=== PATIENT | female | born 1965 | race Caucasian/White ===

== ENCOUNTER 2017-08-18 12:46 | Emergency (ER) | payer OTHER ==
[2017-08-18 12:51] VITALS: RESP 20; TEMP 98.3
[2017-08-18] MEDS ORDERED: SODIUM CHLORIDE 0.9% 1,000 ML IV STA ×2 (13:09)
[2017-08-18] MEDS ORDERED: ONDANSETRON 4 MG/2 ML VIAL IVP STA (13:11)
[2017-08-18] MEDS ORDERED: ACETAMINOPHEN IV (For NPO) 1,000 MG in EMPTY BAG 1 BAG IVPB ONE (13:11)
[2017-08-18] MEDS ORDERED: KETOROLAC 30 MG/ML 1 ML VIAL IVP STA (13:11)
--- NOTE | 2017-08-18 13:14 | ED ---
General Adult HPI - General Chief complaint: Fever Stated complaint: fever/vomiting Time Seen by Provider: 08/18/17 12:52 Source: patient, RN notes reviewed Mode of arrival: ambulatory Limitations: no limitations - History of Present Illness Initial comments: 51-year-old female presents for 3 days of flulike symptoms. Patient has had runny nose, sore throat, multiple episodes of nausea and vomiting. She does complain of some crampy abdominal pain. She has developed cough over this time which is dry. No chest pain, no difficult to breathing. Patient states she's had diffuse myalgias in her arms and thighs and her body. Denies any dysuria. Denies diarrhea. Patient did not receive her influenza vaccine this year. She works in a doctor's office. Patient is otherwise healthy, no chronic medical problems. - Related Data Home Medications Medication Instructions Recorded Confirmed Multivitamins, Thera [Multivitamin 1 tab PO DAILY 08/18/17 08/18/17 (formulary)] Allergies Allergy/AdvReac Type Severity Reaction Status Date / Time prochlorperazine edisylate Allergy Anaphylaxis Verified 08/18/17 13:11 [From Compazine] prochlorperazine maleate Allergy Anaphylaxis Verified 08/18/17 13:11 [From Compazine] Review of Systems ROS Statement: Those systems with pertinent positive or pertinent negative responses have been documented in the HPI. ROS Other: All systems not noted in ROS Statement are negative. Past Medical History Past Medical History: Cancer Additional Past Medical History / Comment(s): breast ca bilateral History of Any Multi-Drug Resistant Organisms: None Reported Past Surgical History: Breast Surgery Additional Past Surgical History / Comment(s): MASTECTOMY lee modified radical Past Anesthesia/Blood Transfusion Reactions: No Reported Reaction Past Psychological History: Anxiety Smoking Status: Current every day smoker Past Alcohol Use History: None Reported Past Drug Use History: None Reported General Exam Limitations: no limitations General appearance: alert, in no apparent distress Head exam: Present: atraumatic, normocephalic Eye exam: Present: normal appearance, PERRL ENT exam: Present: mucous membranes dry Neck exam: Present: normal inspection. Absent: tenderness, meningismus Respiratory exam: Present: normal lung sounds bilaterally. Absent: respiratory distress, wheezes Cardiovascular Exam: Present: regular rate, normal rhythm GI/Abdominal exam: Present: soft, tenderness (mild generalized tenderness). Absent: distended Extremities exam: Present: normal inspection, full ROM, normal capillary refill. Absent: pedal edema Neurological exam: Present: alert, oriented X3, CN II-XII intact. Absent: motor sensory deficit Psychiatric exam: Present: normal affect, normal mood Skin exam: Present: warm, dry, intact. Absent: cyanosis, diaphoretic Course Vital Signs 08/18/17 12:49 Temperature 98.3 F Pulse Rate 90 Respiratory 20 Rate Blood Pressure 115/64 O2 Sat by Pulse 98 Oximetry Medical Decision Making - Medical Decision Making 51-year-old female presenting with flulike symptoms. Influenza A is positive for type A. Urinalysis clear, CBC and CMP unremarkable. Chest x-ray and abdominal x-ray is negative, lactic acid normal. Patient received 2 L of IV hydration, Tylenol and Toradol, on reevaluation she is feeling slightly better. She will continue to treat her symptoms at home. Follow-up with her primary care physician. - Lab Data Result diagrams: 08/18/17 14:00 08/18/17 14:00 Lab Results 08/18/17 08/18/17 08/18/17 Range/Units 13:45 14:00 14:00 WBC 6.8 (3.8-10.6) k/uL RBC 4.53 (3.80-5.40) m/uL Hgb 14.3 (11.4-16.0) gm/dL Hct 43.4 (34.0-46.0) % MCV 95.8 (80.0-100.0) fL MCH 31.7 (25.0-35.0) pg MCHC 33.0 (31.0-37.0) g/dL RDW 13.5 (11.5-15.5) % Plt Count 238 (150-450) k/uL Neutrophils % 75 % Lymphocytes % 18 % Monocytes % 4 % Eosinophils % 1 % Basophils % 1 % Neutrophils # 5.1 (1.3-7.7) k/uL Lymphocytes # 1.2 (1.0-4.8) k/uL Monocytes # 0.3 (0-1.0) k/uL Eosinophils # 0.1 (0-0.7) k/uL Basophils # 0.1 (0-0.2) k/uL Sodium 141 (137-145) mmol/L Potassium 4.1 (3.5-5.1) mmol/L Chloride 105 (98-107) mmol/L Carbon Dioxide 25 (22-30) mmol/L Anion Gap 11 mmol/L BUN 12 (7-17) mg/dL Creatinine 0.75 (0.52-1.04) mg/dL Est GFR (MDRD) Af Amer >60 (>60 ml/min/1.73 sqM) Est GFR (MDRD) Non-Af >60 (>60 ml/min/1.73 sqM) Glucose 87 (74-99) mg/dL Plasma Lactic Acid Mervin (0.7-2.0) mmol/L Calcium 8.9 (8.4-10.2) mg/dL Total Bilirubin 0.2 (0.2-1.3) mg/dL AST 25 (14-36) U/L ALT 29 (9-52) U/L Alkaline Phosphatase 86 (38-126) U/L Total Protein 6.5 (6.3-8.2) g/dL Albumin 4.0 (3.5-5.0) g/dL Urine Color Urine Appearance (Clear) Urine pH (5.0-8.0) Ur Specific [place] (1.001-1.035) Urine Protein (Negative) Urine Glucose (UA) (Negative) Urine Ketones (Negative) Urine Blood (Negative) Urine Nitrite (Negative) Urine Bilirubin (Negative) Urine Urobilinogen (<2.0) mg/dL Ur Leukocyte Esterase (Negative) Urine HCG, Qual (Not Detectd) Influenza Type A RNA Detected H (Not Detectd) Influenza Type B (PCR) Not Detected (Not Detectd) 08/18/17 08/18/17 08/18/17 Range/Units 14:00 14:00 14:00 WBC (3.8-10.6) k/uL RBC (3.80-5.40) m/uL Hgb (11.4-16.0) gm/dL Hct (34.0-46.0) % MCV (80.0-100.0) fL MCH (25.0-35.0) pg MCHC (31.0-37.0) g/dL RDW (11.5-15.5) % Plt Count (150-450) k/uL Neutrophils % % Lymphocytes % % Monocytes % % Eosinophils % % Basophils % % Neutrophils # (1.3-7.7) k/uL Lymphocytes # (1.0-4.8) k/uL Monocytes # (0-1.0) k/uL Eosinophils # (0-0.7) k/uL Basophils # (0-0.2) k/uL Sodium (137-145) mmol/L Potassium (3.5-5.1) mmol/L Chloride (98-107) mmol/L Carbon Dioxide (22-30) mmol/L Anion Gap mmol/L BUN (7-17) mg/dL Creatinine (0.52-1.04) mg/dL Est GFR (MDRD) Af Amer (>60 ml/min/1.73 sqM) Est GFR (MDRD) Non-Af (>60 ml/min/1.73 sqM) Glucose (74-99) mg/dL Plasma Lactic Acid Mervin 0.9 (0.7-2.0) mmol/L Calcium (8.4-10.2) mg/dL Total Bilirubin (0.2-1.3) mg/dL AST (14-36) U/L ALT (9-52) U/L Alkaline Phosphatase (38-126) U/L Total Protein (6.3-8.2) g/dL Albumin (3.5-5.0) g/dL Urine Color Yellow Urine Appearance Clear (Clear) Urine pH 5.5 (5.0-8.0) Ur Specific [place] 1.022 (1.001-1.035) Urine Protein Trace H (Negative) Urine Glucose (UA) Negative (Negative) Urine Ketones 3+ H (Negative) Urine Blood Negative (Negative) Urine Nitrite Negative (Negative) Urine Bilirubin Negative (Negative) Urine Urobilinogen <2.0 (<2.0) mg/dL Ur Leukocyte Esterase Negative (Negative) Urine HCG, Qual Not Detected (Not Detectd) Influenza Type A RNA (Not Detectd) Influenza Type B (PCR) (Not Detectd) Disposition Clinical Impression: Influenza Disposition: HOME SELF-CARE Condition: Good Instructions: Fever in Adults (ED), Influenza (ED) Referrals: None,Stated [Primary Care Provider] - 1-2 days Wilner Gregg MD [STAFF PHYSICIAN] - 1-2 days Time of Disposition: 15:05
[2017-08-18 14:17] LABS: Appearance,Urine Clear (Clear); Basophils # (A) 0.1 k/uL (0-0.2); Basophils % (A) 1 %; Bilirubin,Urine Negative (Negative); Blood,Urine Negative (Negative); Color,Urine Yellow; Eosinophils # (A) 0.1 k/uL (0-0.7); Eosinophils % (A) 1 %; Glucose,Urine (UA) Negative (Negative); HCT 43.4 % (34.0-46.0); HGB 14.3 gm/dL (11.4-16.0); Ketones,Urine 3+ (Negative); Leukocyte Esterase,Urine Negative (Negative); Lymphocytes # (A) 1.2 k/uL (1.0-4.8); Lymphocytes % (A) 18 %; MCH 31.7 pg (25.0-35.0); MCV 95.8 fL (80.0-100.0); Mean Platelet Volume 7.6; Monocytes # (A) 0.3 k/uL (0-1.0); Monocytes % (A) 4 %; Neutrophils # (A) 5.1 k/uL (1.3-7.7); Neutrophils % (A) 75 %; Nitrite,Urine Negative (Negative); PH, Urine 5.5 (5.0-8.0); Platelet Count 238 k/uL (150-450); Protein,Urine Trace (Negative); RBC 4.53 m/uL (3.80-5.40); RDW 13.5 % (11.5-15.5); Specific Gravity,Urine 1.022 (1.001-1.035); Urobilinogen,Urine <2.0 mg/dL (<2.0); WBC 6.8 k/uL (3.8-10.6)
[2017-08-18 14:28] LABS: ALT 29 U/L (9-52); AST 25 U/L (14-36); Alkaline Phosphatase 86 U/L (38-126); Anion Gap 11 mmol/L; Blood Urea Nitrogen 12 mg/dL (7-17); Calcium 8.9 mg/dL (8.4-10.2); Carbon Dioxide 25 mmol/L (22-30); Chloride 105 mmol/L (98-107); Glucose 87 mg/dL (74-99); Potassium 4.1 mmol/L (3.5-5.1); Sodium 141 mmol/L (137-145); Total Bilirubin 0.2 mg/dL (0.2-1.3); Total Protein 6.5 g/dL (6.3-8.2)
--- NOTE | 2017-08-18 14:51 | XR ---
EXAMINATION TYPE: XR abdomen acute w cxr DATE OF EXAM: 08/18/2017 COMPARISON: NONE HISTORY: Pain TECHNIQUE: Single view of the chest and 2 views of the abdomen are submitted. FINDINGS: Single view of the chest fails demonstrate evidence for acute pulmonary disease. There is no evidence for pneumoperitoneum. The bowel gas pattern is unremarkable as there is air throughout nondilated small and large bowel. No sizeable air fluid levels.No mass effects are seen. No unusual calcifications. IMPRESSION: 1. Unremarkable study.
[2017-08-18 15:45] VITALS: BP 106/56; PULSE 81
== END 2017-08-18 16:01 | disposition home or self-care (01) ==
LOC: EC 12:46
DX: J10.1 Influenza due to other identified influenza virus with other respiratory manifestations (principal); R11.2 Nausea with vomiting, unspecified; R10.9 Unspecified abdominal pain; F17.200 Nicotine dependence, unspecified, uncomplicated; Z79.899 Other long term (current) drug therapy; Z88.8 Allergy status to other drugs, medicaments and biological substances; Z85.3 Personal history of malignant neoplasm of breast; Z90.13 Acquired absence of bilateral breasts and nipples
CPT/HCPCS: 36415; 80053; 83605; 85025; 81003; 81025; 87502; 74022; 99283; 96374; 96375 ×2; 96361; J2405; J1885; J0131

== ENCOUNTER 2018-12-26 10:13 | Emergency (ER) | payer OTHER ==
[2018-12-26 10:38] VITALS: BP 122/58; PULSE 62; RESP 18; TEMP 97.8
[2018-12-26] MEDS ORDERED: KETOROLAC 60 MG/2 ML VIAL IM STA (11:11)
[2018-12-26] MEDS ORDERED: DIAZEPAM 5 MG/ML 2 ML INJ IM STA (11:11)
--- NOTE | 2018-12-26 11:21 | ED ---
General Adult HPI - General Chief complaint: Extremity Injury, Upper Stated complaint: back/shoulder pain Time Seen by Provider: 12/26/18 11:05 Source: patient, RN notes reviewed Mode of arrival: ambulatory Limitations: no limitations - History of Present Illness Initial comments: 53-year-old male presents emergency Department chief complaint of upper neck, shoulder and arm pain. Patient states that she woke up with pain on Wednesday states that she felt like she slept wrong. Patient states the pain is worsening and she states that she was seen a chiropractor who was unable to help her. Patient was sent here for pain control. Patient denies any headache or dizziness no focal deficits. Patient has no chest pain or shortness of breath. Patient states that she has no discoloration of her arm denies any nausea vomiting. Patient states the pain is better at rest worse with movement. Patient states that massage with area helps. - Related Data Home Medications Medication Instructions Recorded Confirmed Ibuprofen [Motrin Ib] 200 mg PO Q6H PRN 12/26/18 12/26/18 Naproxen Sod/Diphenhydramine 1 tab PO HS PRN 12/26/18 12/26/18 [Aleve Pm Caplet] Naproxen Sodium [Aleve] 220 mg PO Q12HR PRN 12/26/18 12/26/18 Previous Rx's Medication Instructions Recorded Cyclobenzaprine [Flexeril] 10 mg PO TID PRN #15 tab 12/26/18 HYDROcodone/APAP 7.5-325MG [[place] 1 tab PO Q6HR PRN 3 Days #12 tab 12/26/18 7.5-325] Ibuprofen [Motrin] 600 mg PO Q8HR PRN #30 tab 12/26/18 Allergies Allergy/AdvReac Type Severity Reaction Status Date / Time prochlorperazine edisylate Allergy Anaphylaxis Verified 12/26/18 10:50 [From Compazine] prochlorperazine maleate Allergy Anaphylaxis Verified 12/26/18 10:50 [From Compazine] Review of Systems ROS Statement: Those systems with pertinent positive or pertinent negative responses have been documented in the HPI. ROS Other: All systems not noted in ROS Statement are negative. Past Medical History Past Medical History: Cancer Additional Past Medical History / Comment(s): breast ca bilateral History of Any Multi-Drug Resistant Organisms: None Reported Past Surgical History: Breast Surgery, Hysterectomy Additional Past Surgical History / Comment(s): MASTECTOMY lee modified radical Past Anesthesia/Blood Transfusion Reactions: No Reported Reaction Past Psychological History: Anxiety Smoking Status: Current every day smoker Past Alcohol Use History: None Reported Past Drug Use History: None Reported General Exam Limitations: no limitations General appearance: alert, in no apparent distress Head exam: Present: atraumatic, normocephalic, normal inspection ENT exam: Present: normal exam, normal oropharynx, mucous membranes moist, TM's normal bilaterally, normal external ear exam Neck exam: Present: normal inspection, tenderness (Tenderness of the left trapezius, obvious muscle spasm noted), full ROM. Absent: meningismus, lymphadenopathy Respiratory exam: Present: normal lung sounds bilaterally. Absent: respiratory distress, wheezes, rales, rhonchi, stridor Cardiovascular Exam: Present: regular rate, normal rhythm, normal heart sounds. Absent: systolic murmur, diastolic murmur, rubs, gallop, clicks Extremities exam: Present: other (Bilateral upper extremity full range of motion neurovascular intact equal radial pulses noted) Back exam: Present: full ROM, tenderness, paraspinal tenderness Neurological exam: Present: alert, oriented X3, CN II-XII intact, reflexes normal. Absent: motor sensory deficit Skin exam: Present: warm, dry, intact, normal color. Absent: rash Course Vital Signs 12/26/18 10:35 Temperature 97.8 F Pulse Rate 62 Respiratory 18 Rate Blood Pressure 122/58 O2 Sat by Pulse 99 Oximetry Medical Decision Making - Medical Decision Making 53-year-old female presented for left upper neck shoulder and arm pain. Patient's pain does radiate which is consistent with cervical radiculopathy. Patient had x-rays which shows evidence of C3-C4 slight anterolisthesis though she has no focal deficit. Patient has good radial pulse and: Pulse confirmed on Doppler with no discrepancies. Patient did have mild improvement with Valium and Toradol along with Dilaudid after secondary to persistent pain. Patient be discharged with pain meds muscle relaxers and anti-inflammatories she will continue see chiropractor and return for any worsening symptoms. Disposition Clinical Impression: Cervical radiculopathy, Trapezius muscle spasm Disposition: HOME SELF-CARE Condition: Stable Instructions (If sedation given, give patient instructions): Cervical Radiculopathy (ED), Acute Neck Pain (ED) Additional Instructions: Please return to the Emergency Department if symptoms worsen or any other concerns. Prescriptions: Cyclobenzaprine [Flexeril] 10 mg PO TID PRN #15 tab PRN Reason: Muscle Spasm Ibuprofen [Motrin] 600 mg PO Q8HR PRN #30 tab PRN Reason: Pain HYDROcodone/APAP 7.5-325MG [[place] 7.5-325] 1 tab PO Q6HR PRN 3 Days #12 tab PRN Reason: Pain Is patient prescribed a controlled substance at d/c from ED?: Yes When asked, does pt state using other controlled substances?: No If prescribed controlled substance>3 days was MAPS reviewed?: Prescribed <3 Days If opioid is for acute pain is fill amount 7 days or less?: Yes If Rx opioid, was Start Talking consent form obtained?: Yes Referrals: None,Stated [Primary Care Provider] - 1-2 days Time of Disposition: 13:17
--- NOTE | 2018-12-26 11:39 | XR ---
EXAMINATION TYPE: XR cervical spine comp DATE OF EXAM: 12/26/2018 COMPARISON: 12/28/2013 HISTORY: Pain TECHNIQUE: Four views are submitted. FINDINGS: The odontoid is intact. There are no compression deformities. The prevertebral soft tissue structur es are within normal limits. Loss the normal cervical lordosis. Soft tissue ossification seen anteri carter are stable. Degenerative disc disease C4-5 and C5-C6. There is slight anterolisthesis of C3 on C 4 which is new on today's exam. IMPRESSION: 1. Loss the normal cervical lordosis can be seen with muscular spasm. There is multilevel degenerativ e disc disease which is similar to the prior exam. Slight anterolisthesis of C3 on C4 is noted on dante easley's exam. This could be correlated with CT or MRI as clinically warranted..
[2018-12-26] MEDS ORDERED: HYDROmorphone 1 MG/ML 1 ML SYRINGE IM STA (12:03)
[2018-12-26] MEDS ORDERED: ACET/COD 300 MG/30 MG STARTER PACK 6 TAB BTL PO STA (13:18)
[2018-12-26] MEDS ORDERED: CYCLOBENZAPRINE 10MG STARTER 3 TAB BTL PO STA (13:18)
[2018-12-26] MEDS ORDERED: IBUPROFEN 600 MG STARTER PACK 4 TAB BTL PO STA (13:18)
== END 2018-12-26 13:45 | disposition home or self-care (01) ==
LOC: EC 10:13
DX: M54.12 Radiculopathy, cervical region (principal); M62.830 Muscle spasm of back; M43.12 Spondylolisthesis, cervical region; F17.200 Nicotine dependence, unspecified, uncomplicated; Z88.8 Allergy status to other drugs, medicaments and biological substances; Z85.3 Personal history of malignant neoplasm of breast; Z90.13 Acquired absence of bilateral breasts and nipples
CPT/HCPCS: 99283; 96372 ×3; 72050; J3360; J1885; J1170

== ENCOUNTER 2019-04-30 17:28 | Emergency (ER) | payer OTHER ==
[2019-04-30 17:37] VITALS: RESP 18; TEMP 98.6
[2019-04-30] MEDS ORDERED: SODIUM CHLORIDE 0.9% 1,000 ML IV STA (17:45)
[2019-04-30] MEDS ORDERED: ONDANSETRON 4 MG/2 ML VIAL IVP STA (17:55)
[2019-04-30] MEDS ORDERED: DEXAMETHASONE SOD PHOSPHATE 10 MG/ML 1 ML VIAL IV STA (17:55)
[2019-04-30] MEDS ORDERED: IPRATROPIUM-ALBUTEROL 3 ML NEB INHALATION STA (17:55)
--- NOTE | 2019-04-30 18:03 | ED ---
General Adult HPI - General Chief complaint: Seizure Stated complaint: Seizure Time Seen by Provider: 04/30/19 17:29 Source: patient, family, EMS Mode of arrival: EMS Limitations: altered mental status - History of Present Illness Initial comments: Dictation was produced using [employer] dictation software. please excuse any grammatical, word or spelling errors. Chief Complaint: 53-year-old female with past medical history of breast cancer presents with cough and seizure. History of Present Illness: 83-year-old female she has history of seizure. Last seizure was when she was 14 years of age. Patient was in a vehicle when she began having a coughing fit. Allegedly patient was witnessed to have tonic- clonic like activity. She does not take seizure medications. EMS was called patient is transferred to the emergency department. Patient has been suffering from URI type symptoms for the last 10 days. She will have several coughing fits and feels slightly lightheaded. Patient has any headache at this time. She is amnestic to the event. There is a female named Shakira who was witnessed to her symptoms today. He is not at the bedside currently. The ROS documented in this emergency department record has been reviewed and confirmed by me. Those systems with pertinent positive or negative responses have been documented in the HPI. All other systems are other negative and/or noncontributory. PHYSICAL EXAM: General Impression: Alert and oriented x3, not in acute distress, profusely coughing HEENT: Normocephalic atraumatic, extra-ocular movements intact, pupils equal and reactive to light bilaterally, mucous membranes moist. Cardiovascular: Heart regular rate and rhythm, S1&S2 audible, no murmurs, rubs or gallops Chest: Lungs clear to auscultation bilaterally, no rhonchi, no wheeze, no rales Abdomen: Bowel sounds present, abdomen soft, non-tender, non-distended, no organomegaly Musculoskeletal: Pulses present and equal in all extremities, no peripheral edema Motor: no focal deficits noted Neurological: CN II-XII grossly intact, no focal motor or sensory deficits noted Skin: Intact with no visualized rashes Psych: Normal affect and mood ED course: 53-year-old female presents with concerns of seizure. Patient had a seizure when she was 14 years old. 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 Patient also has been having persistent URI symptoms for the last 10 days. Vital signs upon arrival shows heart rate of 114, worse vital signs within acceptable limits.History is obtained from family member who witnessed the event. Patient had a shaking episode that last for several seconds. She was then postictal for several minutes prior to coming to the emergency department. Laboratory evaluation obtained mild leukocytosis of 11.5 likely secondary to stress. Metabolic panel is negative. Urinalysis negative. Influenza and alcohol test is negative. Computed tomography scan of the brain shows no acute processes. Patient observed in emergency part for several hours with no repeat event. Patient given breathing treatment, codeine for cough suppressant and antinausea medication along with fluids. Patient had no repeat episodes of seizure. Patient's clinical presentation is concerning for recurrent seizure versus new onset seizure. Seizure is likely secondary to mild hypoxia from coughing fits. Patient given cough suppressant in emergency Department with cessation of coughing. She requests discharge to follow-up with primary care physician. We will give patient albuterol inhaler and codeine when necessary severe coughing fits. Patient also told to moss picker [id number] cold medication to loosen her sputum. Return for hours discussed. Patient clear for discharge. I believe discharge is reasonable disposition given that she is well-appearing and has no repeat episodes and there is a discernible cause. She does also good outpatient follow-up. T EKG interpretation: Ventricular rate 109, sinus tachycardia, [place] interval 154, QRS 68, QTC 422. No [place] prolongation, no QTC prolongation, no ST or T-wave changes noted. EKG compared to 12/28/2013 showing no changes. Overall, this EKG is unremarkable - Related Data Home Medications Medication Instructions Recorded Confirmed Pseudoephedrine 12Hr [Sudafed 12Hr] 120 mg PO DAILY PRN 04/30/19 04/30/19 [id number] 600/30MG [Mucinex 1 tab PO HS PRN 04/30/19 04/30/19 Dm] Previous Rx's Medication Instructions Recorded Albuterol Inhaler [Ventolin Hfa 1 - 2 puff INHALATION RT-Q6H PRN 04/30/19 Inhaler] #1 inhaler Codeine 30 mg PO Q6H PRN 3 Days #8 tab 04/30/19 Allergies Allergy/AdvReac Type Severity Reaction Status Date / Time prochlorperazine edisylate Allergy Anaphylaxis Verified 04/30/19 18:13 [From Compazine] prochlorperazine maleate Allergy Anaphylaxis Verified 04/30/19 18:13 [From Compazine] Review of Systems ROS Statement: Those systems with pertinent positive or pertinent negative responses have been documented in the HPI. ROS Other: All systems not noted in ROS Statement are negative. Past Medical History Past Medical History: Cancer Additional Past Medical History / Comment(s): breast ca bilateral, partial left mastectomy History of Any Multi-Drug Resistant Organisms: None Reported Past Surgical History: Breast Surgery, Hysterectomy Additional Past Surgical History / Comment(s): MASTECTOMY lee modified radical Past Anesthesia/Blood Transfusion Reactions: No Reported Reaction Past Psychological History: Anxiety Smoking Status: Current every day smoker Past Alcohol Use History: Occasional Past Drug Use History: None Reported General Exam Limitations: altered mental status Course Vital Signs 04/30/19 04/30/19 04/30/19 17:30 18:04 18:26 Temperature 98.6 F Pulse Rate 114 H 96 98 Respiratory 18 18 Rate Blood Pressure 114/79 115/74 O2 Sat by Pulse 97 99 Oximetry 04/30/19 04/30/19 18:34 19:57 Temperature Pulse Rate 100 91 Respiratory 18 Rate Blood Pressure 116/78 O2 Sat by Pulse 97 Oximetry Medical Decision Making - Lab Data Result diagrams: 04/30/19 17:45 04/30/19 19:32 Lab Results 04/30/19 04/30/19 04/30/19 Range/Units 17:45 17:45 19:32 WBC 11.5 H (3.8-10.6) k/uL RBC 4.16 (3.80-5.40) m/uL Hgb 13.3 (11.4-16.0) gm/dL Hct 39.2 (34.0-46.0) % MCV 94.2 (80.0-100.0) fL MCH 31.9 (25.0-35.0) pg MCHC 33.8 (31.0-37.0) g/dL RDW 12.5 (11.5-15.5) % Plt Count 365 (150-450) k/uL Neutrophils % 73 % Lymphocytes % 18 % Monocytes % 4 % Eosinophils % 2 % Basophils % 2 % Neutrophils # 8.4 H (1.3-7.7) k/uL Lymphocytes # 2.0 (1.0-4.8) k/uL Monocytes # 0.5 (0-1.0) k/uL Eosinophils # 0.2 (0-0.7) k/uL Basophils # 0.2 (0-0.2) k/uL Sodium 140 (137-145) mmol/L Potassium 4.3 (3.5-5.1) mmol/L Chloride 110 H (98-107) mmol/L Carbon Dioxide 23 (22-30) mmol/L Anion Gap 7 mmol/L BUN 8 (7-17) mg/dL Creatinine 0.65 (0.52-1.04) mg/dL Est GFR (CKD-EPI)AfAm >90 (>60 ml/min/1.73 sqM) Est GFR (CKD-EPI)NonAf >90 (>60 ml/min/1.73 sqM) Glucose 115 H (74-99) mg/dL Calcium 8.6 (8.4-10.2) mg/dL Magnesium 1.9 (1.6-2.3) mg/dL Total Bilirubin 0.2 (0.2-1.3) mg/dL AST 25 (14-36) U/L ALT 19 (9-52) U/L Alkaline Phosphatase 106 (38-126) U/L Total Protein 6.6 (6.3-8.2) g/dL Albumin 3.8 (3.5-5.0) g/dL Urine Color Urine Appearance (Clear) Urine pH (5.0-8.0) Ur Specific [place] (1.001-1.035) Urine Protein (Negative) Urine Glucose (UA) (Negative) Urine Ketones (Negative) Urine Blood (Negative) Urine Nitrite (Negative) Urine Bilirubin (Negative) Urine Urobilinogen (<2.0) mg/dL Ur Leukocyte Esterase (Negative) Serum Alcohol <10 mg/dL Influenza Type A RNA Not Detected (Not Detectd) Influenza Type B (PCR) Not Detected (Not Detectd) 04/30/19 Range/Units Unknown WBC (3.8-10.6) k/uL RBC (3.80-5.40) m/uL Hgb (11.4-16.0) gm/dL Hct (34.0-46.0) % MCV (80.0-100.0) fL MCH (25.0-35.0) pg MCHC (31.0-37.0) g/dL RDW (11.5-15.5) % Plt Count (150-450) k/uL Neutrophils % % Lymphocytes % % Monocytes % % Eosinophils % % Basophils % % Neutrophils # (1.3-7.7) k/uL Lymphocytes # (1.0-4.8) k/uL Monocytes # (0-1.0) k/uL Eosinophils # (0-0.7) k/uL Basophils # (0-0.2) k/uL Sodium (137-145) mmol/L Potassium (3.5-5.1) mmol/L Chloride (98-107) mmol/L Carbon Dioxide (22-30) mmol/L Anion Gap mmol/L BUN (7-17) mg/dL Creatinine (0.52-1.04) mg/dL Est GFR (CKD-EPI)AfAm (>60 ml/min/1.73 sqM) Est GFR (CKD-EPI)NonAf (>60 ml/min/1.73 sqM) Glucose (74-99) mg/dL Calcium (8.4-10.2) mg/dL Magnesium (1.6-2.3) mg/dL Total Bilirubin (0.2-1.3) mg/dL AST (14-36) U/L ALT (9-52) U/L Alkaline Phosphatase (38-126) U/L Total Protein (6.3-8.2) g/dL Albumin (3.5-5.0) g/dL Urine Color Light Yellow Urine Appearance Clear (Clear) Urine pH 6.0 (5.0-8.0) Ur Specific [place] 1.005 (1.001-1.035) Urine Protein Negative (Negative) Urine Glucose (UA) Negative (Negative) Urine Ketones Negative (Negative) Urine Blood Negative (Negative) Urine Nitrite Negative (Negative) Urine Bilirubin Negative (Negative) Urine Urobilinogen <2.0 (<2.0) mg/dL Ur Leukocyte Esterase Negative (Negative) Serum Alcohol mg/dL Influenza Type A RNA (Not Detectd) Influenza Type B (PCR) (Not Detectd) Disposition Clinical Impression: Seizure Disposition: HOME SELF-CARE Condition: Good Instructions (If sedation given, give patient instructions): New-Onset Seizure in Adults (ED) Prescriptions: Codeine 30 mg PO Q6H PRN 3 Days #8 tab PRN Reason: severe coughing Albuterol Inhaler [Ventolin Hfa Inhaler] 1 - 2 puff INHALATION RT-Q6H PRN #1 inhaler PRN Reason: Dyspnea Is patient prescribed a controlled substance at d/c from ED?: Yes If prescribed controlled substance>3 days was MAPS reviewed?: Prescribed <3 Days Referrals: Oscar Valdez MD [STAFF PHYSICIAN] - 1-2 days Time of Disposition: 22:24
[2019-04-30 18:34] LABS: Basophils # (A) 0.2 k/uL (0-0.2); Basophils % (A) 2 %; Eosinophils # (A) 0.2 k/uL (0-0.7); Eosinophils % (A) 2 %; HCT 39.2 % (34.0-46.0); HGB 13.3 gm/dL (11.4-16.0); Lymphocytes % (A) 18 %; MCH 31.9 pg (25.0-35.0); MCHC 33.8 g/dL (31.0-37.0); MCV 94.2 fL (80.0-100.0); Mean Platelet Volume 7.2; Monocytes # (A) 0.5 k/uL (0-1.0); Monocytes % (A) 4 %; Neutrophils # (A) 8.4 k/uL (1.3-7.7); Neutrophils % (A) 73 %; Platelet Count 365 k/uL (150-450); RBC 4.16 m/uL (3.80-5.40); RDW 12.5 % (11.5-15.5); WBC 11.5 k/uL (3.8-10.6)
--- NOTE | 2019-04-30 18:51 | CT ---
EXAMINATION TYPE: CT brain wo con DATE OF EXAM: 04/30/2019 COMPARISON: 10/15/2011 HISTORY: Possible seizure today. CT DLP: 1082.4 mGycm Automated exposure control for dose reduction was used. FINDINGS: Ventricles and sulci appear normal. There is no mass effect nor midline shift. There is no sign of in tracranial hemorrhage. Calvarium is intact. IMPRESSION: NEGATIVE CT SCAN OF THE BRAIN. NO CHANGE. NO EVIDENCE OF CEREBRAL EDEMA.
[2019-04-30 20:01] LABS: ALT 19 U/L (9-52); AST 25 U/L (14-36); African American GFR (CKD) >90 (>60 ml/min/1.73 sqM); Albumin 3.8 g/dL (3.5-5.0); Alcohol <10 mg/dL; Alkaline Phosphatase 106 U/L (38-126); Anion Gap 7 mmol/L; Blood Urea Nitrogen 8 mg/dL (7-17); Calcium 8.6 mg/dL (8.4-10.2); Carbon Dioxide 23 mmol/L (22-30); Chloride 110 mmol/L (98-107); Glucose 115 mg/dL (74-99); Magnesium 1.9 mg/dL (1.6-2.3); Potassium 4.3 mmol/L (3.5-5.1); Sodium 140 mmol/L (137-145); Total Bilirubin 0.2 mg/dL (0.2-1.3); Total Protein 6.6 g/dL (6.3-8.2)
[2019-04-30 20:12] LABS: Appearance,Urine Clear (Clear); Bilirubin,Urine Negative (Negative); Blood,Urine Negative (Negative); Color,Urine Light Yellow; Glucose,Urine (UA) Negative (Negative); Ketones,Urine Negative (Negative); Leukocyte Esterase,Urine Negative (Negative); Nitrite,Urine Negative (Negative); Protein,Urine Negative (Negative); Specific Gravity,Urine 1.005 (1.001-1.035); Urobilinogen,Urine <2.0 mg/dL (<2.0)
[2019-04-30] MEDS ORDERED: CODEINE 30 MG TAB PO STA (21:00)
--- NOTE | 2019-04-30 21:01 | XR ---
EXAMINATION TYPE: XR chest 1V portable DATE OF EXAM: 04/30/2019 COMPARISON: 08/18/2017 HISTORY: Cough TECHNIQUE: Single frontal view of the chest is obtained. FINDINGS: There is poor inspiration. There is some atelectasis at the lung bases. There is no heart failure. Heart size is normal. There are chest leads. IMPRESSION: There is new atelectasis at the lung bases compared to old exam. Normal heart. No heart failure.
[2019-04-30 22:29] VITALS: BP 112/74; PULSE 87
== END 2019-04-30 22:34 | disposition home or self-care (01) ==
LOC: EC 17:28
DX: R56.9 Unspecified convulsions (principal); R05 Cough; R42 Dizziness and giddiness; D72.829 Elevated white blood cell count, unspecified; R09.02 Hypoxemia; Z87.820 Personal history of traumatic brain injury; Z85.3 Personal history of malignant neoplasm of breast; Z88.8 Allergy status to other drugs, medicaments and biological substances
CPT/HCPCS: 99285; 96374; 96375; 96361; 36415; 94640; 93005; 80053; 83735; 85025; 81003; 80320; 87502; 71045; 70450; J1100; J2405

== ENCOUNTER 2020-02-02 21:24 | Emergency (ER) | payer OTHER ==
[2020-02-02] MEDS ORDERED: SODIUM CHLORIDE 0.9% 1,000 ML IV ONE (21:51)
[2020-02-02] MEDS ORDERED: ONDANSETRON 4 MG/2 ML VIAL IVP STA (21:52)
[2020-02-02] MEDS ORDERED: KETOROLAC 30 MG/ML 1 ML VIAL IVP STA (21:52)
[2020-02-02 21:59] LABS: Glucose,Whole Blood 105 mg/dL (75-99)
[2020-02-02 22:22] LABS: Basophils # (A) 0.1 k/uL (0-0.2); Basophils % (A) 1 %; Eosinophils # (A) 0.2 k/uL (0-0.7); Eosinophils % (A) 3 %; Lymphocytes # (A) 2.9 k/uL (1.0-4.8); Lymphocytes % (A) 34 %; MCH 31.2 pg (25.0-35.0); MCHC 32.6 g/dL (31.0-37.0); MCV 95.6 fL (80.0-100.0); Mean Platelet Volume 7.8; Monocytes # (A) 0.4 k/uL (0-1.0); Monocytes % (A) 5 %; Neutrophils # (A) 4.6 k/uL (1.3-7.7); Neutrophils % (A) 55 %; Platelet Count 306 k/uL (150-450); RDW 12.3 % (11.5-15.5); WBC 8.3 k/uL (3.8-10.6)
[2020-02-02 22:28] VITALS: RESP 18
[2020-02-02 22:30] LABS: ALT 14 U/L (4-34); AST 21 U/L (14-36); African American GFR (CKD) >90 (>60 ml/min/1.73 sqM); Alcohol <10 mg/dL; Alkaline Phosphatase 78 U/L (38-126); Anion Gap 8 mmol/L; Blood Urea Nitrogen 14 mg/dL (7-17); Calcium 9.2 mg/dL (8.4-10.2); Carbon Dioxide 22 mmol/L (22-30); Chloride 108 mmol/L (98-107); Glucose 110 mg/dL (74-99); Non-African American GFR(CKD) 87 (>60 ml/min/1.73 sqM); Potassium 4.3 mmol/L (3.5-5.1); Sodium 138 mmol/L (137-145); Total Bilirubin 0.1 mg/dL (0.2-1.3); Total Protein 6.5 g/dL (6.3-8.2)
[2020-02-02 22:37] LABS: Partial Thromboplastin Time 22.3 sec (22.0-30.0); Prothrombin Time 9.9 sec (9.0-12.0)
--- NOTE | 2020-02-02 23:00 | ED ---
Altered Mental Status HPI - General Chief Complaint: Altered Mental Status Stated Complaint: Confusion Time Seen by Provider: 02/02/20 21:44 Source: patient Mode of arrival: ambulatory Limitations: altered mental status - History of Present Illness Initial Comments: Patient is a 54-year-old female presenting to the emergency department with her sister with complaints of altered mental status starting this morning. Patient's sister is providing history. Sister states that she has not been acting herself since this morning. She does have a history of mild seizures with consist mostly of her eyes rolling back. She denies any recent falls or injuries. She is not on blood thinners. She takes no other medications at this time. Sr. states that the patient and son got home a few hours ago and patient was "poking at the son's face and not responding to his questions." The sister then it went to the patient's house and noticed that she was acting strangely and decided to bring her into the ER. Patient has a medical history of breast cancer that is currently in remission. Patient is complaining of a headache as well as mild nausea. She denies any chest pain, shortness of breath, nausea, vomiting, diarrhea, abdominal pain, blurry vision. She denies drinking any alcohol or any other drug use. She denies taking any medications tonight. She denies any urinary complaints. There are no further complaints at this time. Upon arrival to the ER, patient was slightly tachycardia at 105, rest of vitals normal. - Related Data Home Medications Medication Instructions Recorded Confirmed Pseudoephedrine 12Hr [Sudafed 12Hr] 120 mg PO DAILY PRN 04/30/19 04/30/19 guaiFENesin-DM 600/30MG [Mucinex 1 tab PO HS PRN 04/30/19 04/30/19 Dm] Previous Rx's Medication Instructions Recorded Albuterol Inhaler (Mhu) [Ventolin 1 - 2 puff INHALATION RT-Q6H PRN 04/30/19 Hfa Inhaler] #1 inhaler Codeine 30 mg PO Q6H PRN 3 Days #8 tab 04/30/19 LORazepam [Ativan] 0.5 mg PO HS 3 Days #3 tab 02/03/20 Ondansetron Odt [Zofran Odt] 4 mg PO Q8HR PRN #10 tab 02/03/20 Allergies Allergy/AdvReac Type Severity Reaction Status Date / Time prochlorperazine edisylate Allergy Anaphylaxis Verified 02/02/20 21:43 [From Compazine] prochlorperazine maleate Allergy Anaphylaxis Verified 02/02/20 21:43 [From Compazine] Review of Systems ROS Statement: Those systems with pertinent positive or pertinent negative responses have been documented in the HPI. ROS Other: All systems not noted in ROS Statement are negative. Past Medical History Past Medical History: Cancer Additional Past Medical History / Comment(s): breast ca bilateral, partial left mastectomy History of Any Multi-Drug Resistant Organisms: None Reported Past Surgical History: Breast Surgery, Hysterectomy Additional Past Surgical History / Comment(s): MASTECTOMY lee modified radical Past Anesthesia/Blood Transfusion Reactions: No Reported Reaction Past Psychological History: Anxiety Smoking Status: Current every day smoker Past Alcohol Use History: Occasional Past Drug Use History: None Reported General Exam - General Exam Comments Initial Comments: GENERAL: She appears fatigued, and in no acute distress. HEAD: Atraumatic, normocephalic. EYES: Pupils equal round and reactive to light, extraocular movements intact, sclera anicteric, conjunctiva are normal. ENT: TMs normal, nares patent, oropharynx clear without exudates. Moist mucous membranes. NECK: Normal range of motion, supple without lymphadenopathy or JVD. LUNGS: Breath sounds clear to auscultation bilaterally and equal. No wheezes rales or rhonchi. HEART: Regular rate and rhythm without murmurs, rubs or gallops. ABDOMEN: Soft, nontender, normoactive bowel sounds. No guarding, no rebound. No masses appreciated. : Deferred EXTREMITIES: Normal range of motion, no pitting or edema. No clubbing or cyanosis. Strength is 5/5 in upper and lower extremities bilaterally. NEUROLOGICAL: Cranial nerves II through XII grossly intact. Normal speech, normal gait. A&O x 4. PSYCH: Normal mood, normal affect. SKIN: Warm, Dry, normal turgor, no rashes or lesions noted. Limitations: altered mental status Course Vital Signs 02/02/20 02/02/20 02/02/20 21:40 22:27 23:43 Temperature 99 F Pulse Rate 105 H 83 68 Respiratory 20 18 18 Rate Blood Pressure 112/75 121/75 106/71 O2 Sat by Pulse 96 97 97 Oximetry 02/03/20 01:49 Temperature 98.4 F Pulse Rate 67 Respiratory 18 Rate Blood Pressure 116/74 O2 Sat by Pulse 97 Oximetry Medical Decision Making - Medical Decision Making Patient is a 54-year-old female here for altered mental status according to sister. Her vitals are stable upon arrival. Her exam is unremarkable, no neuro deficits, no pain. A&O4. She is slightly nauseous, complaining of a headache. EKG shows no acute abnormality. Lab work shows no acute findings, glucose is normal, troponin is normal, alcohol is negative, urine shows no signs of infection, urine drug screen is negative. Patient was given fluids, Zofran, Toradol. She reports improvement in her symptoms. After re-evaluation,patient continues to be alert and oriented 4, no acute symptoms. She had a fall normal conversation with me. Patient states she doesn't a history of small petite seizures and states these occur more often when she has not been sleeping or stress. Patient states she has had associated increase in stress and has only had a few hours sleep for the past few nights. Patient states she does not see a neurologist. She recently just got insurance back and is waiting to be seen by her PCP. I discussed with patient that we do not have neurology integration analyst at this point and recommended her being transferred for neural violation. Patient declined this. She states she will follow-up with her PCP. Patient is stable for discharge. She will follow-up with her PCP next week. Strict return parameters were discussed with the patient and patient's son and they both verbalized understanding. Patient is in agreement with this plan of care. Case discussed with Dr. Romano. - Lab Data Result diagrams: 02/02/20 22:08 02/02/20 22:08 Lab Results 02/02/20 02/02/20 02/02/20 Range/Units 21:55 22:08 22:08 WBC 8.3 (3.8-10.6) k/uL RBC 4.50 (3.80-5.40) m/uL Hgb 14.0 (11.4-16.0) gm/dL Hct 43.0 (34.0-46.0) % MCV 95.6 (80.0-100.0) fL MCH 31.2 (25.0-35.0) pg MCHC 32.6 (31.0-37.0) g/dL RDW 12.3 (11.5-15.5) % Plt Count 306 (150-450) k/uL Neutrophils % 55 % Lymphocytes % 34 % Monocytes % 5 % Eosinophils % 3 % Basophils % 1 % Neutrophils # 4.6 (1.3-7.7) k/uL Lymphocytes # 2.9 (1.0-4.8) k/uL Monocytes # 0.4 (0-1.0) k/uL Eosinophils # 0.2 (0-0.7) k/uL Basophils # 0.1 (0-0.2) k/uL PT 9.9 (9.0-12.0) sec INR 1.0 (<1.2) APTT 22.3 (22.0-30.0) sec Sodium (137-145) mmol/L Potassium (3.5-5.1) mmol/L Chloride (98-107) mmol/L Carbon Dioxide (22-30) mmol/L Anion Gap mmol/L BUN (7-17) mg/dL Creatinine (0.52-1.04) mg/dL Est GFR (CKD-EPI)AfAm (>60 ml/min/1.73 sqM) Est GFR (CKD-EPI)NonAf (>60 ml/min/1.73 sqM) Glucose (74-99) mg/dL POC Glucose (mg/dL) 105 H (75-99) mg/dL POC Glu Immigration Lawyer TREASURE Carline Emily Calcium (8.4-10.2) mg/dL Total Bilirubin (0.2-1.3) mg/dL AST (14-36) U/L ALT (4-34) U/L Alkaline Phosphatase (38-126) U/L Troponin I (0.000-0.034) ng/mL Total Protein (6.3-8.2) g/dL Albumin (3.5-5.0) g/dL Urine Color Urine Appearance (Clear) Urine pH (5.0-8.0) Ur Specific [place] (1.001-1.035) Urine Protein (Negative) Urine Glucose (UA) (Negative) Urine Ketones (Negative) Urine Blood (Negative) Urine Nitrite (Negative) Urine Bilirubin (Negative) Urine Urobilinogen (<2.0) mg/dL Ur Leukocyte Esterase (Negative) Urine Opiates Screen (NotDetected) Ur Oxycodone Screen (NotDetected) Urine Methadone Screen (NotDetected) Ur Propoxyphene Screen (NotDetected) Ur Barbiturates Screen (NotDetected) U Tricyclic Antidepress (NotDetected) Ur Phencyclidine Scrn (NotDetected) Ur Amphetamines Screen (NotDetected) U Methamphetamines Scrn (NotDetected) U Benzodiazepines Scrn (NotDetected) Urine Cocaine Screen (NotDetected) U Marijuana (THC) Screen (NotDetected) Serum Alcohol mg/dL 02/02/20 02/02/20 02/02/20 Range/Units 22:08 22:08 23:55 WBC (3.8-10.6) k/uL RBC (3.80-5.40) m/uL Hgb (11.4-16.0) gm/dL Hct (34.0-46.0) % MCV (80.0-100.0) fL MCH (25.0-35.0) pg MCHC (31.0-37.0) g/dL RDW (11.5-15.5) % Plt Count (150-450) k/uL Neutrophils % % Lymphocytes % % Monocytes % % Eosinophils % % Basophils % % Neutrophils # (1.3-7.7) k/uL Lymphocytes # (1.0-4.8) k/uL Monocytes # (0-1.0) k/uL Eosinophils # (0-0.7) k/uL Basophils # (0-0.2) k/uL PT (9.0-12.0) sec INR (<1.2) APTT (22.0-30.0) sec Sodium 138 (137-145) mmol/L Potassium 4.3 (3.5-5.1) mmol/L Chloride 108 H (98-107) mmol/L Carbon Dioxide 22 (22-30) mmol/L Anion Gap 8 mmol/L BUN 14 (7-17) mg/dL Creatinine 0.79 (0.52-1.04) mg/dL Est GFR (CKD-EPI)AfAm >90 (>60 ml/min/1.73 sqM) Est GFR (CKD-EPI)NonAf 87 (>60 ml/min/1.73 sqM) Glucose 110 H (74-99) mg/dL POC Glucose (mg/dL) (75-99) mg/dL POC Glu Immigration Lawyer ID Calcium 9.2 (8.4-10.2) mg/dL Total Bilirubin 0.1 L (0.2-1.3) mg/dL AST 21 (14-36) U/L ALT 14 (4-34) U/L Alkaline Phosphatase 78 (38-126) U/L Troponin I <0.012 (0.000-0.034) ng/mL Total Protein 6.5 (6.3-8.2) g/dL Albumin 4.0 (3.5-5.0) g/dL Urine Color Light Yellow Urine Appearance Clear (Clear) Urine pH 5.5 (5.0-8.0) Ur Specific [place] 1.017 (1.001-1.035) Urine Protein Trace H (Negative) Urine Glucose (UA) Negative (Negative) Urine Ketones Trace H (Negative) Urine Blood Negative (Negative) Urine Nitrite Negative (Negative) Urine Bilirubin Negative (Negative) Urine Urobilinogen <2.0 (<2.0) mg/dL Ur Leukocyte Esterase Negative (Negative) Urine Opiates Screen Not Detected (NotDetected) Ur Oxycodone Screen Not Detected (NotDetected) Urine Methadone Screen Not Detected (NotDetected) Ur Propoxyphene Screen Not Detected (NotDetected) Ur Barbiturates Screen Not Detected (NotDetected) U Tricyclic Antidepress Not Detected (NotDetected) Ur Phencyclidine Scrn Not Detected (NotDetected) Ur Amphetamines Screen Not Detected (NotDetected) U Methamphetamines Scrn Not Detected (NotDetected) U Benzodiazepines Scrn Not Detected (NotDetected) Urine Cocaine Screen Not Detected (NotDetected) U Marijuana (THC) Screen Not Detected (NotDetected) Serum Alcohol <10 mg/dL - EKG Data EKG Comments: Sinus tach, no signs of acute ischemia. Ventricular rate 102, MN interval 164, QT 328. Similar to previous EKG on 04/30/2019. Disposition Clinical Impression: Altered mental status, Anxiety Disposition: HOME SELF-CARE Condition: Stable Instructions (If sedation given, give patient instructions): Normal Exam (ED) Additional Instructions: Please return to the Emergency Department if symptoms worsen or any other concerns. Follow-up with PCP as discussed. Trial of Ativan at night for anxiety. Prescriptions: LORazepam [Ativan] 0.5 mg PO HS 3 Days #3 tab Ondansetron Odt [Zofran Odt] 4 mg PO Q8HR PRN #10 tab PRN Reason: Nausea Is patient prescribed a controlled substance at d/c from ED?: Yes When asked, does pt state using other controlled substances?: No If prescribed controlled substance>3 days was MAPS reviewed?: Prescribed <3 Days Referrals: Ck Ackerman DO [Primary Care Provider] - 1-2 days Dorothea Lawson MD [STAFF PHYSICIAN] - 1-2 days
--- NOTE | 2020-02-02 23:23 | CT ---
EXAMINATION TYPE: CT brain wo con DATE OF EXAM: 02/02/2020 COMPARISON: 04/30/2019 HISTORY: ams, seizure, headache CT DLP: 1107.4 mGycm Automated exposure control for dose reduction was used. Exam performed with no contrast. No change. hemorrhage. Calvarium is intact. There is no evidence of cerebral edema. IMPRESSION: Negative unenhanced head CT scan.
--- NOTE | 2020-02-02 23:26 | XR ---
EXAMINATION TYPE: XR chest 2V DATE OF EXAM: 02/02/2020 COMPARISON: 04/30/2019 HISTORY: Cough TECHNIQUE: 2 views FINDINGS: Heart and mediastinum are normal. Lungs are clear. Diaphragm is normal. Bony thorax appears intact. Pulmonary vascularity is normal. IMPRESSION: No active cardiopulmonary disease. There is improved inspiration compared to old exam.
[2020-02-03 00:25] LABS: Appearance,Urine Clear (Clear); Bilirubin,Urine Negative (Negative); Blood,Urine Negative (Negative); Color,Urine Light Yellow; Glucose,Urine (UA) Negative (Negative); Ketones,Urine Trace (Negative); Leukocyte Esterase,Urine Negative (Negative); Nitrite,Urine Negative (Negative); PH, Urine 5.5 (5.0-8.0); Protein,Urine Trace (Negative); Specific Gravity,Urine 1.017 (1.001-1.035); Urobilinogen,Urine <2.0 mg/dL (<2.0)
[2020-02-03 00:55] LABS: Amphetamine Screen,Urine Not Detected (NotDetected); Barbiturate Screen,Urine Not Detected (NotDetected); Benzodiazepines Screen,Urine Not Detected (NotDetected); Cocaine Screen,Urine Not Detected (NotDetected); Methadone Screen, Urine Not Detected (NotDetected); Opiate Screen,Urine Not Detected (NotDetected); Oxycodone Screen, Urine Not Detected (NotDetected); Phencyclidine Screen,Urine Not Detected (NotDetected); Tricyclic Antidepressant,Urine Not Detected (NotDetected); Urn Cannabinoid Scrn Not Detected (NotDetected)
[2020-02-03] MEDS ORDERED: LORazepam 1 MG TAB PO STA (01:35)
[2020-02-03] MEDS ORDERED: traMADol 50 MG STARTER PACK 3 TAB BTL PO STA (01:35)
[2020-02-03] MEDS ORDERED: ONDANSETRON 4 MG/2 ML VIAL IVP STA (01:35)
[2020-02-03 01:53] VITALS: BP 116/74; PULSE 67; TEMP 98.4
== END 2020-02-03 02:08 | disposition home or self-care (01) ==
LOC: EC 21:24
DX: F41.9 Anxiety disorder, unspecified (principal); R41.82 Altered mental status, unspecified; R11.0 Nausea; R51 Headache; F17.200 Nicotine dependence, unspecified, uncomplicated; Z88.8 Allergy status to other drugs, medicaments and biological substances; Z85.3 Personal history of malignant neoplasm of breast; Z90.13 Acquired absence of bilateral breasts and nipples
CPT/HCPCS: 36415; 93005; 80053; 84484; 85025; 85610; 85730; 71046; 70450; 99285; 96374; 96375; 96376; 96361 ×4; G0480; J2405; J1885; 80306; 80320; 81003

== ENCOUNTER 2020-12-03 17:47 | Emergency (ER) | payer OTHER ==
[2020-12-03 18:01] VITALS: TEMP 98.4
[2020-12-03 18:31] LABS: Basophils # (A) 0.1 k/uL (0-0.2); Basophils % (A) 1 %; Eosinophils # (A) 0.1 k/uL (0-0.7); Eosinophils % (A) 1 %; HCT 45.4 % (34.0-46.0); HGB 14.7 gm/dL (11.4-16.0); Lymphocytes # (A) 2.8 k/uL (1.0-4.8); Lymphocytes % (A) 21 %; MCH 31.3 pg (25.0-35.0); MCHC 32.3 g/dL (31.0-37.0); MCV 96.8 fL (80.0-100.0); Mean Platelet Volume 7.6; Monocytes # (A) 0.6 k/uL (0-1.0); Monocytes % (A) 4 %; Neutrophils # (A) 9.8 k/uL (1.3-7.7); Neutrophils % (A) 72 %; Platelet Count 346 k/uL (150-450); RBC 4.69 m/uL (3.80-5.40); RDW 12.6 % (11.5-15.5); WBC 13.5 k/uL (3.8-10.6)
[2020-12-03] MEDS ORDERED: SODIUM CHLORIDE 0.9% 1,000 ML IV STA (18:36)
--- NOTE | 2020-12-03 18:39 | ED ---
General Adult HPI - General Chief complaint: Seizure Stated complaint: seizure Time Seen by Provider: 12/03/20 18:02 Source: EMS Mode of arrival: EMS Limitations: no limitations - History of Present Illness Initial comments: Dictation was produced using [employer] dictation software. please excuse any grammatical, word or spelling errors. This patient was cared for during a federal and state declared state of emergency secondary to Covid 19 Chief Complaint: 55-year-old female past nuchal history of seizures presents today after present seizure. History of Present Illness: She is 55-year-old female she has past medical history of seizures. When she was younger she suffered traumatic head injury. At that time she was diagnosed with epilepsy and she is to be on seizure medications. Several years ago patient had the seizure medications discontinued. She states that today she was trying to put together some furniture when the next she remembers was and once on scene waking her up. Patient states she is not on any medications. I have provided with patient because I saw patient in April 2019 when she had another seizure. At that time she hasn't had a seizure since 12 years prior to that. Patient states that since that she did follow-up with neurology. She reports that she did follow up with neurologist Dr. Valdez who did not start her on seizure medications. Patient states that the medication takes is Adderall for schooling. She hasn't taken this medication approximately one week. The ROS documented in this emergency department record has been reviewed and confirmed by me. Those systems with pertinent positive or negative responses have been documented in the HPI. All other systems are other negative and/or noncontributory. PHYSICAL EXAM: General Impression: Alert and oriented x3, not in acute distress HEENT: Small hematoma over the anterior forehead, extra-ocular movements intact, pupils equal and reactive to light bilaterally, 2 mm pupils, mucous membranes dry Cardiovascular: Heart regular rate and rhythm Chest: Able to complete full sentences, no retractions, no tachypnea Abdomen: abdomen soft, non-tender, non-distended, no organomegaly Musculoskeletal: Pulses present and equal in all extremities, no peripheral edema Motor: no focal deficits noted Neurological: CN II-XII grossly intact, no focal motor or sensory deficits noted Skin: Intact with no visualized rashes Psych: Normal affect and mood ED course: 55-year-old female presents to the emergency department after presumed episode of seizure. As upon arrival are within acceptable limits. Patient had computed tomography scan performed January of last year showed no acute processes. She's had a another CT performed in April 2019 that also did not demonstrate any abnormalities. Physical examination is benign. Neurologic exam shows no processes. EKG is unremarkable. Report from nursing received report from EMS states that they were called after signing observed her on the ground. EMS initially gave her a and O score of 2 out of 4. Laboratory evaluation obtained. CBC, metabolic panel and urine drug screen are all negative. Patient is observed in emergency department for approximately 4 hours with no recurrent seizures. Patient given analgesia for small hematoma the anterior forehead. Patient would prefer to be discharged. She is advised to follow-up with her neurologist. Patient told not to drive in the meantime. EKG interpretation: Ventricular rate a 96, normal sinus rhythm, WI interval 150, QRS 76, QTC 437. No WI prolongation, no QTC prolongation, no ST or T-wave changes noted. EKG compared to 02/02/2020 showing no changes. Overall, this EKG is unremarkable - Related Data Home Medications Medication Instructions Recorded Confirmed Dextroamphetamine/Amphetamine 30 mg PO BID 12/03/20 12/03/20 [Adderall] Allergies Allergy/AdvReac Type Severity Reaction Status Date / Time prochlorperazine edisylate Allergy Anaphylaxis Verified 12/03/20 18:43 [From Compazine] prochlorperazine maleate Allergy Anaphylaxis Verified 12/03/20 18:43 [From Compazine] Review of Systems ROS Statement: Those systems with pertinent positive or pertinent negative responses have been documented in the HPI. ROS Other: All systems not noted in ROS Statement are negative. Past Medical History Past Medical History: Cancer, Seizure Disorder Additional Past Medical History / Comment(s): breast ca bilateral, partial left mastectomy History of Any Multi-Drug Resistant Organisms: None Reported Past Surgical History: Breast Surgery, Hysterectomy Additional Past Surgical History / Comment(s): MASTECTOMY lee modified radical Past Anesthesia/Blood Transfusion Reactions: No Reported Reaction Past Psychological History: Anxiety Smoking Status: Current every day smoker Past Alcohol Use History: Occasional Past Drug Use History: None Reported General Exam Limitations: no limitations Course Vital Signs 12/03/20 17:56 Temperature 98.4 F Pulse Rate 103 H Respiratory 18 Rate Blood Pressure 108/67 O2 Sat by Pulse 98 Oximetry Medical Decision Making - Lab Data Result diagrams: 12/03/20 18:17 12/03/20 18:17 Lab Results 12/03/20 12/03/20 12/03/20 Range/Units 18:17 18:17 18:17 WBC 13.5 H (3.8-10.6) k/uL RBC 4.69 (3.80-5.40) m/uL Hgb 14.7 (11.4-16.0) gm/dL Hct 45.4 (34.0-46.0) % MCV 96.8 (80.0-100.0) fL MCH 31.3 (25.0-35.0) pg MCHC 32.3 (31.0-37.0) g/dL RDW 12.6 (11.5-15.5) % Plt Count 346 (150-450) k/uL MPV 7.6 Neutrophils % 72 % Lymphocytes % 21 % Monocytes % 4 % Eosinophils % 1 % Basophils % 1 % Neutrophils # 9.8 H (1.3-7.7) k/uL Lymphocytes # 2.8 (1.0-4.8) k/uL Monocytes # 0.6 (0-1.0) k/uL Eosinophils # 0.1 (0-0.7) k/uL Basophils # 0.1 (0-0.2) k/uL Sodium 139 (137-145) mmol/L Potassium 4.0 (3.5-5.1) mmol/L Chloride 107 (98-107) mmol/L Carbon Dioxide 24 (22-30) mmol/L Anion Gap 8 mmol/L BUN 13 (7-17) mg/dL Creatinine 0.78 (0.52-1.04) mg/dL Est GFR (CKD-EPI)AfAm >90 (>60 ml/min/1.73 sqM) Est GFR (CKD-EPI)NonAf 87 (>60 ml/min/1.73 sqM) Glucose 119 H (74-99) mg/dL Calcium 9.3 (8.4-10.2) mg/dL Magnesium 1.7 (1.6-2.3) mg/dL Troponin I <0.012 (0.000-0.034) ng/mL Urine Opiates Screen (NotDetected) Ur Oxycodone Screen (NotDetected) Urine Methadone Screen (NotDetected) Ur Propoxyphene Screen (NotDetected) Ur Barbiturates Screen (NotDetected) U Tricyclic Antidepress (NotDetected) Ur Phencyclidine Scrn (NotDetected) Ur Amphetamines Screen (NotDetected) U Methamphetamines Scrn (NotDetected) U Benzodiazepines Scrn (NotDetected) Urine Cocaine Screen (NotDetected) U Marijuana (THC) Screen (NotDetected) 12/03/20 Range/Units 20:52 WBC (3.8-10.6) k/uL RBC (3.80-5.40) m/uL Hgb (11.4-16.0) gm/dL Hct (34.0-46.0) % MCV (80.0-100.0) fL MCH (25.0-35.0) pg MCHC (31.0-37.0) g/dL RDW (11.5-15.5) % Plt Count (150-450) k/uL MPV Neutrophils % % Lymphocytes % % Monocytes % % Eosinophils % % Basophils % % Neutrophils # (1.3-7.7) k/uL Lymphocytes # (1.0-4.8) k/uL Monocytes # (0-1.0) k/uL Eosinophils # (0-0.7) k/uL Basophils # (0-0.2) k/uL Sodium (137-145) mmol/L Potassium (3.5-5.1) mmol/L Chloride (98-107) mmol/L Carbon Dioxide (22-30) mmol/L Anion Gap mmol/L BUN (7-17) mg/dL Creatinine (0.52-1.04) mg/dL Est GFR (CKD-EPI)AfAm (>60 ml/min/1.73 sqM) Est GFR (CKD-EPI)NonAf (>60 ml/min/1.73 sqM) Glucose (74-99) mg/dL Calcium (8.4-10.2) mg/dL Magnesium (1.6-2.3) mg/dL Troponin I (0.000-0.034) ng/mL Urine Opiates Screen Not Detected (NotDetected) Ur Oxycodone Screen Not Detected (NotDetected) Urine Methadone Screen Not Detected (NotDetected) Ur Propoxyphene Screen Not Detected (NotDetected) Ur Barbiturates Screen Not Detected (NotDetected) U Tricyclic Antidepress Not Detected (NotDetected) Ur Phencyclidine Scrn Not Detected (NotDetected) Ur Amphetamines Screen Not Detected (NotDetected) U Methamphetamines Scrn Not Detected (NotDetected) U Benzodiazepines Scrn Not Detected (NotDetected) Urine Cocaine Screen Not Detected (NotDetected) U Marijuana (THC) Screen Not Detected (NotDetected) Disposition Clinical Impression: Seizure Disposition: HOME SELF-CARE Condition: Fair Instructions (If sedation given, give patient instructions): Recurrent Seizures in Adults (ED) Additional Instructions: Follow-up with your neurologist. No driving or operating heavy machinery or climbing ladders or doing any dangerous activities. Is patient prescribed a controlled substance at d/c from ED?: No Referrals: Ck Ackerman DO [Primary Care Provider] - 1-2 days Time of Disposition: 21:50
[2020-12-03 18:41] LABS: African American GFR (CKD) >90 (>60 ml/min/1.73 sqM); Anion Gap 8 mmol/L; Blood Urea Nitrogen 13 mg/dL (7-17); Calcium 9.3 mg/dL (8.4-10.2); Carbon Dioxide 24 mmol/L (22-30); Chloride 107 mmol/L (98-107); Glucose 119 mg/dL (74-99); Magnesium 1.7 mg/dL (1.6-2.3); Non-African American GFR(CKD) 87 (>60 ml/min/1.73 sqM); Sodium 139 mmol/L (137-145)
[2020-12-03 21:23] LABS: Amphetamine Screen,Urine Not Detected (NotDetected); Barbiturate Screen,Urine Not Detected (NotDetected); Benzodiazepines Screen,Urine Not Detected (NotDetected); Cocaine Screen,Urine Not Detected (NotDetected); Methadone Screen, Urine Not Detected (NotDetected); Opiate Screen,Urine Not Detected (NotDetected); Oxycodone Screen, Urine Not Detected (NotDetected); Phencyclidine Screen,Urine Not Detected (NotDetected); Tricyclic Antidepressant,Urine Not Detected (NotDetected); Urn Cannabinoid Scrn Not Detected (NotDetected)
[2020-12-03] MEDS ORDERED: KETOROLAC 15 MG/ML 1 ML VIAL IVP STA (21:48)
[2020-12-03] MEDS ORDERED: ONDANSETRON 4 MG/2 ML VIAL IVP STA (21:48)
[2020-12-03] MEDS ORDERED: ONDANSETRON 4 MG ODT STARTER PACK 2 TAB BTL PO STA (21:51)
[2020-12-03 22:03] VITALS: BP 100/67; PULSE 72; RESP 16
== END 2020-12-03 22:08 | disposition home or self-care (01) ==
LOC: EC 17:47
DX: G40.909 Epilepsy, unspecified, not intractable, without status epilepticus (principal); F17.200 Nicotine dependence, unspecified, uncomplicated; Z85.3 Personal history of malignant neoplasm of breast; Z88.8 Allergy status to other drugs, medicaments and biological substances; Z90.12 Acquired absence of left breast and nipple
CPT/HCPCS: 36415; 93005; 80048; 83735; 84484; 85025; 80306; 99284; 96374; 96375; J2405; J1885; S0119

== ENCOUNTER 2021-11-29 15:15 | Emergency (ER) | payer OTHER ==
[2021-11-29] MEDS ORDERED: SODIUM CHLORIDE 0.9% 1,000 ML IV STA (15:59)
[2021-11-29] MEDS ORDERED: LORazepam 2 MG/ML INJ IV STA (16:08)
[2021-11-29] MEDS ORDERED: ONDANSETRON 4 MG/2 ML VIAL IVP STA (16:08)
[2021-11-29] MEDS ORDERED: LIDOCAINE/EPINEPHR/TETRACAINE 5 ML BOTTLE TOPICAL ONE (16:12)
[2021-11-29] MEDS ORDERED: TOPICAL SKIN ADHESIVE 1 EACH AMP TOPICAL ONE (16:13)
[2021-11-29] MEDS ORDERED: ACETAMINOPHEN TAB 500 MG TAB PO STA (16:14)
--- NOTE | 2021-11-29 16:24 | ED ---
Seizure HPI - General Chief Complaint: Seizure Stated Complaint: Fall/Seizures Time Seen by Provider: 11/29/21 15:56 Source: patient, RN notes reviewed Mode of arrival: wheelchair Limitations: no limitations - History of Present Illness Initial Comments: Facial injury this is a pleasant 56-year-old female with history of seizure disorder. Patient states every few years she has a seizure. Patient states she felt a bit out of it earlier today and then had a prodrome that she was going to have a seizure. Patient states she fell injuring her face and forehead. This was unwitnessed. Unknown downtime. Patient denied any shortness breath or chest pain. She denies any alcohol use. No drug use. Patient is not on controlling medication. Patient has previously been evaluated by a neurologist. She states that her seizures are from a previous head injury. POST ictal headache with nausea, no fever or chills, no changes in vision or hearing, no sore throat or difficulty with speech, no neck pain, no chest pain or shortness of breath, no abdominal pain, no changes in urination or bowel movements, no numbness or tingling, no extremity pain, no skin rashes or lesions. Patient does add that she's had a mild cough. Nonproductive MD Complaint: seizure - Related Data Home Medications Medication Instructions Recorded Confirmed Dextroamphetamine/Amphetamine 30 mg PO BID 12/03/20 11/29/21 [Adderall] Previous Rx's Medication Instructions Recorded Azithromycin [Zithromax Z-pack (6 250 mg PO DIRECTED 4 Days #4 tab 11/29/21 tabs)] Cefuroxime Axetil [Cefuroxime] 500 mg PO BID #20 tab 11/29/21 Allergies Allergy/AdvReac Type Severity Reaction Status Date / Time prochlorperazine edisylate Allergy Anaphylaxis Verified 11/29/21 20:17 [From Compazine] prochlorperazine maleate Allergy Anaphylaxis Verified 11/29/21 20:17 [From Compazine] Review of Systems ROS Statement: Those systems with pertinent positive or pertinent negative responses have been documented in the HPI. ROS Other: All systems not noted in ROS Statement are negative. Past Medical History Past Medical History: Cancer, Seizure Disorder Additional Past Medical History / Comment(s): breast ca bilateral, partial left mastectomy History of Any Multi-Drug Resistant Organisms: None Reported Past Surgical History: Breast Surgery, Hysterectomy Additional Past Surgical History / Comment(s): MASTECTOMY lee modified radical Past Anesthesia/Blood Transfusion Reactions: No Reported Reaction Past Psychological History: Anxiety Smoking Status: Current every day smoker Past Alcohol Use History: Occasional Past Drug Use History: None Reported General Exam - General Exam Comments Initial Comments: Cranial nerves II through XII are intact. Patient has no focal neurologic deficits. Alert and oriented 4. Limitations: no limitations General appearance: alert, in distress Head exam: Present: other (Patient has a hematoma laceration to the right forehead. Laceration to the right medial canthus area. Head isatraumatic otherwise.) Eye exam: Present: normal appearance, PERRL, EOMI. Absent: scleral icterus, conjunctival injection, periorbital swelling ENT exam: Present: normal exam, mucous membranes moist Neck exam: Present: normal inspection, full ROM. Absent: tenderness, meningismus, lymphadenopathy Respiratory exam: Present: normal lung sounds bilaterally. Absent: respiratory distress, wheezes, rales, rhonchi, stridor Cardiovascular Exam: Present: normal rhythm, tachycardia, normal heart sounds. Absent: systolic murmur, diastolic murmur, rubs, gallop, clicks GI/Abdominal exam: Present: soft, normal bowel sounds. Absent: distended, tenderness, guarding, rebound, rigid Extremities exam: Present: normal inspection, full ROM, normal capillary refill. Absent: tenderness, pedal edema, joint swelling, calf tenderness Back exam: Present: normal inspection Neurological exam: Present: alert, oriented X3, CN II-XII intact. Absent: motor sensory deficit Psychiatric exam: Present: normal affect, normal mood Skin exam: Present: warm, dry, intact, normal color. Absent: rash Course Vital Signs 11/29/21 11/29/21 15:23 20:50 Temperature 98 F 98.0 F Pulse Rate 130 H 76 Respiratory 16 18 Rate Blood Pressure 117/72 114/76 O2 Sat by Pulse 97 96 Oximetry - Reevaluation(s) Reevaluation #1: 11/29/21 18:26 Medical record is reviewed Symptoms are improved here in the emergency department Patient is informed of results and questions answered Patient in no distress Patient is neurologically at baseline, alert and oriented 4, cranial nerves II through XII intact. No focal neurologic deficits. Patient complaining of pain to the right frontal area overlying the hematoma. Reevaluation #2: 11/29/21 20:06 Patient currently stable, afebrile, vital signs normal. Chest x-ray does show evidence of atelectasis in the left lower lobe which is new from the previous s tudy. Given the patient's white count certainly this could be early infiltrate. Reevaluation #3: 11/29/21 21:52 Medical record is reviewed Symptoms are improved here in the emergency department Patient is informed of results and questions answered Patient in no distress Repeat neurological exam is benign. Alert and oriented 4, cranial nerves II through XII intact. No focal neurologic deficit. Patient no distress at discharge. Vital signs noted. Procedures - Laceration Laceration #1 Consent Obtained: verbal consent Indication: laceration Site: face (Right forehead) Size (cm): 3 Description: linear Depth: simple, single layer Pre-repair: wound explored, irrigated extensively Type of Sutures: other (Tissue adhesive) Size of Sutures: other (Tissue adhesive) Technique: simple, interrupted Patient Tolerated Procedure: well, no complications Additional Comments: Left solution used for anesthesia. Medical Decision Making - Medical Decision Making Patient with a known seizure disorder. Had a prodrome that she was going to have seizure. This was unwitnessed. Sustained injuries to the facial area. Unknown downtime. We'll order CT scans of the facial bones and head. Plan for laceration repair. Gen. lab work. EKG. Patient does have notable leukocytosis which I believe is reactive from the seizure activity itself. Patient has no evidence of infectious process on evaluation or reevaluation. Repeat neurological exam is benign. The case was discussed in detail with ED attending physician. Presentation, findings, treatment plan discussed in detail. Dr. Werner Of note, this patient is refusing laceration repair to the laceration involving the medial canthus near her right eye. This may involve the canuliculus. Wound was contaminated. I was able to irrigate the wound thoroughly with 100 mL of normal saline. I did discuss risks versus benefits of closure. I advised wound closure. Patient again refusing this and willing to take the wrist. Patient is alert and oriented 4, lucid, able to make her own medical decisions. Computed tomography scan showed no acute pathology. Patient leukocytosis was likely stress reaction. Urinalysis was clear. Chest x-ray pending at 7:23 PM. Patient was told to return to the ER for any signs or symptoms worsen. Told to return immediately if any other problems arise. All questions answered. Treatment plan discussed. Patient in agreement Every effort has been made to ensure accuracy of this dictation. However, due to the limitations of electronic medical records and dictation devices, errors in charting still occur. Given follow-up with ophthalmology and neurology. Need for follow-up discussed in detail. Patient voiced understanding. Patient can take [id number] acetaminophen and ibuprofen for pain control. Wound care discussed. Head injury instructions discussed. Patient released with her son who is here with the patient and will observe the patient for the next 24 hours. Curb 65 score 0 points Low risk group: 0.6% 30-day mortality. Consider outpatient treatment. That the patient has not had vital signs and symptoms initially vital signs. I did recheck the patient myself. Blood pressure is normal. Heart rate is 84/m by my count. Respiratory rate is 16. No adventitious lung sounds or respiratory distress. Capillary refills less than 2 seconds. Adequate perfusion. No seizure activity here in the ER. D-dimer was added and was negative. - Lab Data Result diagrams: 11/29/21 16:30 11/29/21 16:30 Lab Results 11/29/21 11/29/21 11/29/21 Range/Units 16:30 16:30 17:58 WBC 19.3 H (3.8-10.6) k/uL RBC 4.65 (3.80-5.40) m/uL Hgb 14.6 (11.4-16.0) gm/dL Hct 44.6 (34.0-46.0) % MCV 95.9 (80.0-100.0) fL MCH 31.4 (25.0-35.0) pg MCHC 32.8 (31.0-37.0) g/dL RDW 12.2 (11.5-15.5) % Plt Count 367 (150-450) k/uL MPV 7.7 Neutrophils % 89 % Lymphocytes % 6 % Monocytes % 3 % Eosinophils % 1 % Basophils % 1 % Neutrophils # 17.1 H (1.3-7.7) k/uL Lymphocytes # 1.2 (1.0-4.8) k/uL Monocytes # 0.6 (0-1.0) k/uL Eosinophils # 0.1 (0-0.7) k/uL Basophils # 0.1 (0-0.2) k/uL D-Dimer (<0.60) mg/L FEU Sodium 137 (137-145) mmol/L Potassium 4.5 (3.5-5.1) mmol/L Chloride 106 (98-107) mmol/L Carbon Dioxide 26 (22-30) mmol/L Anion Gap 5 mmol/L BUN 15 (7-17) mg/dL Creatinine 0.74 (0.52-1.04) mg/dL Est GFR (CKD-EPI)AfAm >90 (>60 ml/min/1.73 sqM) Est GFR (CKD-EPI)NonAf >90 (>60 ml/min/1.73 sqM) Glucose 118 H (74-99) mg/dL Calcium 9.3 (8.4-10.2) mg/dL Magnesium 1.8 (1.6-2.3) mg/dL Total Bilirubin 0.4 (0.2-1.3) mg/dL AST 29 (14-36) U/L ALT 21 (4-34) U/L Alkaline Phosphatase 71 (38-126) U/L Total Protein 6.7 (6.3-8.2) g/dL Albumin 4.0 (3.5-5.0) g/dL Urine Color Yellow Urine Appearance Clear (Clear) Urine pH 6.5 (5.0-8.0) Ur Specific [place] 1.021 (1.001-1.035) Urine Protein 1+ H (Negative) Urine Glucose (UA) Negative (Negative) Urine Ketones 1+ H (Negative) Urine Blood Negative (Negative) Urine Nitrite Negative (Negative) Urine Bilirubin Negative (Negative) Urine Urobilinogen <2.0 (<2.0) mg/dL Ur Leukocyte Esterase Negative (Negative) Urine RBC 1 (0-5) /hpf Urine WBC 1 (0-5) /hpf Ur Squamous Epith Cells 2 (0-4) /hpf Hyaline Casts 6 H (0-2) /lpf Urine Mucus Rare H (None) /hpf Urine Opiates Screen Not Detected (NotDetected) Ur Oxycodone Screen Not Detected (NotDetected) Urine Methadone Screen Not Detected (NotDetected) Ur Propoxyphene Screen Not Detected (NotDetected) Ur Barbiturates Screen Not Detected (NotDetected) U Tricyclic Antidepress Not Detected (NotDetected) Ur Phencyclidine Scrn Not Detected (NotDetected) Ur Amphetamines Screen Not Detected (NotDetected) U Methamphetamines Scrn Not Detected (NotDetected) U Benzodiazepines Scrn Not Detected (NotDetected) Urine Cocaine Screen Not Detected (NotDetected) U Marijuana (THC) Screen Not Detected (NotDetected) Serum Alcohol <10 mg/dL 11/29/21 Range/Units 21:15 WBC (3.8-10.6) k/uL RBC (3.80-5.40) m/uL Hgb (11.4-16.0) gm/dL Hct (34.0-46.0) % MCV (80.0-100.0) fL MCH (25.0-35.0) pg MCHC (31.0-37.0) g/dL RDW (11.5-15.5) % Plt Count (150-450) k/uL MPV Neutrophils % % Lymphocytes % % Monocytes % % Eosinophils % % Basophils % % Neutrophils # (1.3-7.7) k/uL Lymphocytes # (1.0-4.8) k/uL Monocytes # (0-1.0) k/uL Eosinophils # (0-0.7) k/uL Basophils # (0-0.2) k/uL D-Dimer 0.46 (<0.60) mg/L FEU Sodium (137-145) mmol/L Potassium (3.5-5.1) mmol/L Chloride (98-107) mmol/L Carbon Dioxide (22-30) mmol/L Anion Gap mmol/L BUN (7-17) mg/dL Creatinine (0.52-1.04) mg/dL Est GFR (CKD-EPI)AfAm (>60 ml/min/1.73 sqM) Est GFR (CKD-EPI)NonAf (>60 ml/min/1.73 sqM) Glucose (74-99) mg/dL Calcium (8.4-10.2) mg/dL Magnesium (1.6-2.3) mg/dL Total Bilirubin (0.2-1.3) mg/dL AST (14-36) U/L ALT (4-34) U/L Alkaline Phosphatase (38-126) U/L Total Protein (6.3-8.2) g/dL Albumin (3.5-5.0) g/dL Urine Color Urine Appearance (Clear) Urine pH (5.0-8.0) Ur Specific [place] (1.001-1.035) Urine Protein (Negative) Urine Glucose (UA) (Negative) Urine Ketones (Negative) Urine Blood (Negative) Urine Nitrite (Negative) Urine Bilirubin (Negative) Urine Urobilinogen (<2.0) mg/dL Ur Leukocyte Esterase (Negative) Urine RBC (0-5) /hpf Urine WBC (0-5) /hpf Ur Squamous Epith Cells (0-4) /hpf Hyaline Casts (0-2) /lpf Urine Mucus (None) /hpf Urine Opiates Screen (NotDetected) Ur Oxycodone Screen (NotDetected) Urine Methadone Screen (NotDetected) Ur Propoxyphene Screen (NotDetected) Ur Barbiturates Screen (NotDetected) U Tricyclic Antidepress (NotDetected) Ur Phencyclidine Scrn (NotDetected) Ur Amphetamines Screen (NotDetected) U Methamphetamines Scrn (NotDetected) U Benzodiazepines Scrn (NotDetected) Urine Cocaine Screen (NotDetected) U Marijuana (THC) Screen (NotDetected) Serum Alcohol mg/dL - EKG Data EKG Comments: EKG done at 1718 ED attending physician reveals sinus rhythm with a rate of 81, normal axis, no acute ST or T-wave changes. Normal intervals. - Radiology Data Radiology results: report reviewed, image reviewed Disposition Clinical Impression: Recurrent seizures, Contusion of scalp, Facial laceration, Closed head injury, Community acquired pneumonia Disposition: HOME SELF-CARE Condition: Good Instructions (If sedation given, give patient instructions): Head Injury (ED), Community Acquired Pneumonia (ED), Recurrent Seizures in Adults (ED), Acute Wounds (ED) Additional Instructions: Call Wednesday morning to make a follow-up line with the neurologist and the senior quality assurance specialist. Wash the wound Deepika her right eye daily with mild soap such as nonadhering baby soap. Apply a thin layer of Neosporin or triple antibiotic ointment. Follow-up with the senior quality assurance specialist as directed. Ensure that some but he stays with you for the next 24 hours for observation. Follow-up with your regular physician as directed. Return to the ER immediately if any symptoms worsen, new symptoms arise, or any other problems develop. Prescriptions: Cefuroxime Axetil [Cefuroxime] 500 mg PO BID #20 tab Azithromycin [Zithromax Z-pack (6 tabs)] 250 mg PO DIRECTED 4 Days #4 tab Is patient prescribed a controlled substance at d/c from ED?: No Referrals: Ck Ackerman DO [Primary Care Provider] - 1-2 days Evens Fernández DO [STAFF PHYSICIAN] - 1-2 days Jeremy Li MD [STAFF PHYSICIAN] - 1-2 days Time of Disposition: 19:25
[2021-11-29 16:41] LABS: Basophils # (A) 0.1 k/uL (0-0.2); Basophils % (A) 1 %; Eosinophils # (A) 0.1 k/uL (0-0.7); Eosinophils % (A) 1 %; HCT 44.6 % (34.0-46.0); HGB 14.6 gm/dL (11.4-16.0); Lymphocytes # (A) 1.2 k/uL (1.0-4.8); Lymphocytes % (A) 6 %; MCH 31.4 pg (25.0-35.0); MCHC 32.8 g/dL (31.0-37.0); MCV 95.9 fL (80.0-100.0); Mean Platelet Volume 7.7; Monocytes # (A) 0.6 k/uL (0-1.0); Monocytes % (A) 3 %; Neutrophils # (A) 17.1 k/uL (1.3-7.7); Neutrophils % (A) 89 %; Platelet Count 367 k/uL (150-450); RBC 4.65 m/uL (3.80-5.40); RDW 12.2 % (11.5-15.5); WBC 19.3 k/uL (3.8-10.6)
[2021-11-29 16:53] LABS: ALT 21 U/L (4-34); AST 29 U/L (14-36); African American GFR (CKD) >90 (>60 ml/min/1.73 sqM); Alcohol <10 mg/dL; Alkaline Phosphatase 71 U/L (38-126); Anion Gap 5 mmol/L; Blood Urea Nitrogen 15 mg/dL (7-17); Calcium 9.3 mg/dL (8.4-10.2); Carbon Dioxide 26 mmol/L (22-30); Chloride 106 mmol/L (98-107); Glucose 118 mg/dL (74-99); Magnesium 1.8 mg/dL (1.6-2.3); Non-African American GFR(CKD) >90 (>60 ml/min/1.73 sqM); Potassium 4.5 mmol/L (3.5-5.1); Sodium 137 mmol/L (137-145); Total Bilirubin 0.4 mg/dL (0.2-1.3); Total Protein 6.7 g/dL (6.3-8.2)
--- NOTE | 2021-11-29 17:37 | CT ---
EXAMINATION TYPE: CT facial bones wo con DATE OF EXAM: 11/29/2021 COMPARISON: None HISTORY: Fall, facial injury hx seizures CT DLP: 1332.4 mGycm Automated exposure control for dose reduction was used. Images obtained from the bottom of the mandible to the top of the frontal sinuses without contrast. The mandibular ring is intact. Temporomandibular joints appear intact. Zygomatic arches are normal. N wolf bone is intact. [place] is intact. No evidence of orbital blowout fracture. There is fairly norm al aeration of the paranasal sinuses. No evidence of retro-orbital mass. Orbital margins are intact. There is normal aeration of the mastoid sinuses. There is right frontal scalp soft tissue swelling me asuring 6 mm in thickness. IMPRESSION: Negative CT scan of the facial bones. No fracture seen. Right frontal mild scalp hematoma.
--- NOTE | 2021-11-29 17:39 | CT ---
EXAMINATION TYPE: CT brain wo con DATE OF EXAM: 11/29/2021 COMPARISON: 02/02/2020 HISTORY: Fall, facial injury hx seizures CT DLP: 1332.4 mGycm Automated exposure control for dose reduction was used. Images obtained of the brain without contrast. Ventricles and sulci appear normal. There is no mass effect or midline shift. There is no sign of int racranial hemorrhage. Calvarium is intact. There is right frontal scalp hematoma. IMPRESSION: No acute intracranial abnormality. No adverse change. Right frontal scalp hematoma.
[2021-11-29] MEDS ORDERED: KETOROLAC 15 MG/ML 1 ML VIAL IVP STA (18:15)
[2021-11-29 18:20] LABS: Appearance,Urine Clear (Clear); Bilirubin,Urine Negative (Negative); Blood,Urine Negative (Negative); Color,Urine Yellow; Glucose,Urine (UA) Negative (Negative); Hyaline Casts,Urine 6 /lpf (0-2); Ketones,Urine 1+ (Negative); Leukocyte Esterase,Urine Negative (Negative); Mucus,Urine Rare /hpf; Nitrite,Urine Negative (Negative); PH, Urine 6.5 (5.0-8.0); Protein,Urine 1+ (Negative); RBC,Urine 1 /hpf (0-5); Specific Gravity,Urine 1.021 (1.001-1.035); Squamous Epithelial Cell,Urine 2 /hpf (0-4); Urobilinogen,Urine <2.0 mg/dL (<2.0); WBC,Urine 1 /hpf (0-5)
[2021-11-29 18:26] LABS: Amphetamine Screen,Urine Not Detected (NotDetected); Barbiturate Screen,Urine Not Detected (NotDetected); Benzodiazepines Screen,Urine Not Detected (NotDetected); Cocaine Screen,Urine Not Detected (NotDetected); Methadone Screen, Urine Not Detected (NotDetected); Opiate Screen,Urine Not Detected (NotDetected); Oxycodone Screen, Urine Not Detected (NotDetected); Phencyclidine Screen,Urine Not Detected (NotDetected); Tricyclic Antidepressant,Urine Not Detected (NotDetected); Urn Cannabinoid Scrn Not Detected (NotDetected)
--- NOTE | 2021-11-29 19:56 | XR ---
EXAMINATION TYPE: XR chest 1V portable DATE OF EXAM: 11/29/2021 COMPARISON: 02/02/2020 HISTORY: Altered mental status TECHNIQUE: FINDINGS: Heart and mediastinum are normal. Lungs are clear. There is small linear density at the lef t lung base. Bony thorax is intact. No pleural effusion. IMPRESSION: Small area of atelectasis left lung base appears new compared to old exam. Normal heart.
[2021-11-29] MEDS ORDERED: AZITHROMYCIN 500 MG in SODIUM CHLORIDE 0.9% 250 ML IVPB STA (20:04)
[2021-11-29] MEDS ORDERED: cefTRIAXone IN SWFI 1,000 MG/10 ML SYRINGE IVP STA (20:05)
[2021-11-29 20:52] VITALS: TEMP 98
[2021-11-29] MEDS ORDERED: AZITHROMYCIN 500 MG TAB PO STA (21:05)
[2021-11-29 23:39] VITALS: BP 122/80; PULSE 74; RESP 16
== END 2021-11-29 22:30 | disposition home or self-care (01) ==
LOC: EC 15:15
DX: G40.909 Epilepsy, unspecified, not intractable, without status epilepticus (principal); S01.81XA Laceration without foreign body of other part of head, initial encounter; J18.9 Pneumonia, unspecified organism; F17.200 Nicotine dependence, unspecified, uncomplicated; F41.9 Anxiety disorder, unspecified; Z79.899 Other long term (current) drug therapy; W19.XXXA Unspecified fall, initial encounter
CPT/HCPCS: 36415; 93005; 85379; 80053; 83735; 85025; 81001; 87040; 80306; 71045; 70486; 70450; 12013; 99284; 96374; 96375 ×3; 96361; G0480; J2060; J2405; J0696; J1885; 80320

== ENCOUNTER 2022-04-09 20:36 | Emergency (ER) | payer OTHER ==
[2022-04-09] MEDS ORDERED: LORazepam 2 MG/ML INJ IV STA (23:40)
[2022-04-09] MEDS ORDERED: SODIUM CHLORIDE 0.9% 1,000 ML IV STA (23:40)
[2022-04-09] MEDS ORDERED: KETOROLAC 15 MG/ML 1 ML VIAL IVP STA (23:58)
[2022-04-10 00:12] LABS: African American GFR (CKD) >90 (>60 ml/min/1.73 sqM); Anion Gap 9 mmol/L; Blood Urea Nitrogen 11 mg/dL (7-17); Calcium 8.9 mg/dL (8.4-10.2); Carbon Dioxide 20 mmol/L (22-30); Chloride 107 mmol/L (98-107); Glucose 111 mg/dL (74-99); Magnesium 1.8 mg/dL (1.6-2.3); Non-African American GFR(CKD) >90 (>60 ml/min/1.73 sqM); Potassium 4.2 mmol/L (3.5-5.1); Sodium 136 mmol/L (137-145)
[2022-04-10 00:14] LABS: Basophils # (A) 0.1 k/uL (0-0.2); Basophils % (A) 1 %; Eosinophils # (A) 0.1 k/uL (0-0.7); Eosinophils % (A) 1 %; HCT 45.5 % (34.0-46.0); HGB 14.6 gm/dL (11.4-16.0); Lymphocytes # (A) 1.6 k/uL (1.0-4.8); Lymphocytes % (A) 9 %; MCH 30.9 pg (25.0-35.0); MCHC 32.1 g/dL (31.0-37.0); MCV 96.2 fL (80.0-100.0); Mean Platelet Volume 7.6; Monocytes # (A) 0.8 k/uL (0-1.0); Monocytes % (A) 5 %; Neutrophils % (A) 84 %; Platelet Count 361 k/uL (150-450); RBC 4.73 m/uL (3.80-5.40); RDW 12.2 % (11.5-15.5); WBC 17.8 k/uL (3.8-10.6)
--- NOTE | 2022-04-10 00:35 | XR ---
EXAMINATION TYPE: XR chest 2V DATE OF EXAM: 04/10/2022 COMPARISON: 11/29/2021 HISTORY: Cough TECHNIQUE: FINDINGS: Heart is normal. Lungs are clear of infiltrate. No heart failure. Bony thorax is intact. Th e pulmonary vascularity is normal. No pleural effusion. IMPRESSION: No active cardiopulmonary disease. No change.
--- NOTE | 2022-04-10 01:19 | ED ---
General Adult HPI - General Chief complaint: Seizure Stated complaint: seizure Time Seen by Provider: 04/09/22 23:30 Source: patient, family, RN notes reviewed, old records reviewed Mode of arrival: wheelchair - History of Present Illness Initial comments: Patient is a 56-year-old female with past medical history remarkable for intermittent seizures and is not on any antiepileptic medications presents emergency department over concern for possible COVID-19 infection as well as concern for possible developing seizure. She states she gets auras and she currently feels like she is having an aura. Last time she had a seizure she had COVID-19. She became concerned and came for further evaluation. States she feels anxious. Has a tightening in her throat. Denies shortness of breath, difficulty in breathing. Does endorse a nonproductive cough. Endorses rhinorrhea. Endorses mild nonspecific headache. Denies any nausea or vomiting. Denies any constipation, diarrhea. Denies any sick contacts. Has no abdominal pain. Denies any chest pain. His no other acute complaints at this time. Denies fevers or chills. Presents for further evaluation over concern for po ssibly having a seizure, anxiety, as well as her headache. Denies any seizure activity. Patient presents with family members. - Related Data Home Medications Medication Instructions Recorded Confirmed Dextroamphetamine/Amphetamine 30 mg PO BID 12/03/20 11/29/21 [Adderall] Previous Rx's Medication Instructions Recorded Azithromycin [Zithromax Z-pack (6 250 mg PO DIRECTED 4 Days #4 tab 11/29/21 tabs)] cefUROXime axetiL [Cefuroxime] 500 mg PO BID #20 tab 11/29/21 Allergies Allergy/AdvReac Type Severity Reaction Status Date / Time prochlorperazine edisylate Allergy Anaphylaxis Verified 04/09/22 20:45 [From Compazine] prochlorperazine maleate Allergy Anaphylaxis Verified 04/09/22 20:45 [From Compazine] Review of Systems ROS Statement: Those systems with pertinent positive or pertinent negative responses have been documented in the HPI. Review of Systems: CONST: Denies fever EYES: Denies blurry vision ENT: Endorses nasal congestion C/V: Denies Chest pain RESP: Denies shortness of breath GI: Denies abdominal pain : Denies dysuria SKIN: Denies rash. MSK: Denies joint pain. NEURO: Endorses mild headache ROS Other: All systems not noted in ROS Statement are negative. Past Medical History Past Medical History: Cancer, Seizure Disorder Additional Past Medical History / Comment(s): breast ca bilateral, partial left mastectomy History of Any Multi-Drug Resistant Organisms: None Reported Past Surgical History: Breast Surgery, Hysterectomy Additional Past Surgical History / Comment(s): MASTECTOMY lee modified radical Past Anesthesia/Blood Transfusion Reactions: No Reported Reaction Past Psychological History: Anxiety Smoking Status: Current every day smoker Past Alcohol Use History: Occasional Past Drug Use History: None Reported General Exam - General Exam Comments Initial Comments: General: Appears in no acute distress. HEAD: Normal with no signs of head trauma. EYES: PERRLA, EOMI, conjunctiva normal, no discharge. ENT: Hearing grossly intact, normal oropharynx. RESPIRATORY: Clear breath sounds bilaterally. No wheezes, rales, or rhonchi. C/V: Regular rate and rhythm. S1 and S2 auscultated, no edema, peripheral pulses 2+ and intact throughout ABD: Abd is soft, nontender, nondistended EXT: Normal range of motion, no obvious deformity SKIN: No rashes or lesions observed on exposed skin. NEURO: Alert and oriented x 4. Cranial nerves II-XII intact. No focal sensory or strength deficits. NIH of 0. GCS of 15. Course Vital Signs 04/09/22 04/10/22 20:41 01:51 Temperature 98.2 F 97.9 F Pulse Rate 89 80 Respiratory 18 20 Rate Blood Pressure 127/74 108/77 O2 Sat by Pulse 96 97 Oximetry Medical Decision Making - Medical Decision Making Based on the patient's presentation and physical exam, it does not appear she had a seizure. She is concerned she may have a seizure. She is having some upper respiratory infection symptoms. Did recommend we obtain basic labs as well as a COVID-19 swab. She was in agreement this plan and chest x-ray and EKG will also be obtained. She'll be treated for her headache. She was in agreement this plan. Vital signs are within normal limits. EKG shows no signs of acute ischemia. Chest x-ray shows no acute ca rdiopulmonary process. Covid swab is negative. Patient is a chronically elevated white blood cell count and this appears to be near her baseline. Remainder of the labs are unremarkable. On reevaluation, patient is feeling improved. I believe it is safer to be discharged home. She has not had any seizure activity throughout her stay here. She was in agreement this plan. Strict return precautions were discussed. Discussed monitoring for signs and symptoms of COVID-19 and she can use home testing to monitor for positivity. She was in agreement with this plan. I instructed the patient to follow up with their PCP in the next 1-3 days. I explained that the patient should return to the emergency department if they experience any worsening symptoms. Strict return precautions were discussed with the patient. The patient expressed understanding of these instructions. I ans wered all questions that the patient had. The patient was discharged home in good condition with their prescriptions and follow up information. - Lab Data Result diagrams: 04/09/22 23:47 04/09/22 23:47 Lab Results 04/09/22 04/09/22 04/09/22 Range/Units 23:47 23:47 23:56 WBC 17.8 H (3.8-10.6) k/uL RBC 4.73 (3.80-5.40) m/uL Hgb 14.6 (11.4-16.0) gm/dL Hct 45.5 (34.0-46.0) % MCV 96.2 (80.0-100.0) fL MCH 30.9 (25.0-35.0) pg MCHC 32.1 (31.0-37.0) g/dL RDW 12.2 (11.5-15.5) % Plt Count 361 (150-450) k/uL MPV 7.6 Neutrophils % 84 % Lymphocytes % 9 % Monocytes % 5 % Eosinophils % 1 % Basophils % 1 % Neutrophils # 15.0 H (1.3-7.7) k/uL Lymphocytes # 1.6 (1.0-4.8) k/uL Monocytes # 0.8 (0-1.0) k/uL Eosinophils # 0.1 (0-0.7) k/uL Basophils # 0.1 (0-0.2) k/uL Sodium 136 L (137-145) mmol/L Potassium 4.2 (3.5-5.1) mmol/L Chloride 107 (98-107) mmol/L Carbon Dioxide 20 L (22-30) mmol/L Anion Gap 9 mmol/L BUN 11 (7-17) mg/dL Creatinine 0.63 (0.52-1.04) mg/dL Est GFR (CKD-EPI)AfAm >90 (>60 ml/min/1.73 sqM) Est GFR (CKD-EPI)NonAf >90 (>60 ml/min/1.73 sqM) Glucose 111 H (74-99) mg/dL Calcium 8.9 (8.4-10.2) mg/dL Magnesium 1.8 (1.6-2.3) mg/dL Coronavirus (PCR) Not Detected (Not Detectd) - EKG Data -: EKG Interpreted by Me EKG Comments: 12-lead Electrocardiogram Interpretation Note EKG was reviewed and interpreted by myself. 12-lead ECG performed at 2349 is interpreted by me as revealing normal sinus rhythm at a rate of 66 beats per minute. [place] is normal. AR interval is 157 ms, QRS duration is 75 ms, QTc is 369 ms.. There were no ST or T wave abnormalities to suggest myocardial ischemia or injury. R wave progression across the precordium was satisfactory. By my interpretation this EKG is non-diagnostic for acute ischemia. Disposition Clinical Impression: Headache, URI (upper respiratory infection), Anxiety Disposition: HOME SELF-CARE Condition: Good Instructions (If sedation given, give patient instructions): Upper Respiratory Infection (ED), Acute Headache (ED) Is patient prescribed a controlled substance at d/c from ED?: No Referrals: Ck Ackerman DO [Primary Care Provider] - 1-2 days Time of Disposition: 01:00
[2022-04-10 01:52] VITALS: BP 108/77; PULSE 80; RESP 20; TEMP 97.9
== END 2022-04-10 02:18 | disposition home or self-care (01) ==
LOC: EC 20:36
DX: R51.9 Headache, unspecified (principal); J06.9 Acute upper respiratory infection, unspecified; F41.9 Anxiety disorder, unspecified; F17.200 Nicotine dependence, unspecified, uncomplicated; Z88.8 Allergy status to other drugs, medicaments and biological substances; Z79.899 Other long term (current) drug therapy; Z20.822 Contact with and (suspected) exposure to COVID-19
CPT/HCPCS: 36415; 93005; 80048; 83735; 85025; 87635; 71046; 99284; 96374; 96375; 96361; J2060; J1885

== ENCOUNTER 2023-01-03 15:39 | Emergency (ER) | payer OTHER ==
[2023-01-03 15:50] VITALS: RESP 16; TEMP 98.3
[2023-01-03] MEDS ORDERED: SODIUM CHLORIDE 0.9% 1,000 ML IV STA (16:14)
[2023-01-03] MEDS ORDERED: MORPHINE SULFATE 4 MG/ML SYRINGE IVP STA (16:15)
--- NOTE | 2023-01-03 16:52 | ED ---
Seizure HPI - General Chief Complaint: Seizure Stated Complaint: Seizure Time Seen by Provider: 01/03/23 16:02 Source: patient, RN notes reviewed Mode of arrival: EMS Limitations: no limitations - History of Present Illness Initial Comments: Patient is a 57-year-old female presenting to the emergency room via EMS accompanied by her sister after a witnessed tonic-clonic seizure which lasted approximately 3 minutes. She has facial abrasions from being on the ground. She is complaining of a headache at this time but denies any other comp laints or concerns. She denies any chest pain, shortness of breath, nausea, vomiting, dizziness, focal weaknesses or episodes of confusion. She is slightly fatigued but back to baseline mental status. She denies any injuries to any other extremities. She states that her last seizure was approximately one year ago; she does not follow with neurology and is not on any anti-epileptic medications. She denies any known triggers to her seizure last year or her current seizure. Her only medication that she takes on a regular basis is Adderall for ADHD and she denies any changes in this medication or missed dosing. In addition to her seizure and ADHD history she has past medical history significant for anxiety, breast cancer with partial meniscectomy nonautoimmune suppressant therapy. - Related Data Home Medications Medication Instructions Recorded Confirmed Dextroamphetamine/Amphetamine 30 mg PO AC-BID 12/03/20 01/03/23 [Adderall] LORazepam [Ativan] 0.5 mg PO DAILY PRN 01/03/23 01/03/23 Allergies Allergy/AdvReac Type Severity Reaction Status Date / Time prochlorperazine edisylate Allergy Anaphylaxis Verified 01/03/23 18:04 [From Compazine] prochlorperazine maleate Allergy Anaphylaxis Verified 01/03/23 18:04 [From Compazine] Review of Systems ROS Statement: Those systems with pertinent positive or pertinent negative responses have been documented in the HPI. ROS Other: All systems not noted in ROS Statement are negative. Past Medical History Past Medical History: Cancer, Seizure Disorder Additional Past Medical History / Comment(s): breast ca bilateral, partial left mastectomy History of Any Multi-Drug Resistant Organisms: None Reported Past Surgical History: Breast Surgery, Hysterectomy Additional Past Surgical History / Comment(s): MASTECTOMY ele modified radical Past Anesthesia/Blood Transfusion Reactions: No Reported Reaction Past Psychological History: ADD/ADHD, Anxiety Smoking Status: Current every day smoker Past Alcohol Use History: Occasional Past Drug Use History: None Reported General Exam Limitations: no limitations General appearance: alert, in no apparent distress Head exam: Present: normocephalic, normal inspection, other (abrasion and laceration to left upper lip above the joanne border) Eye exam: Present: normal appearance, PERRL, EOMI. Absent: scleral icterus, conjunctival injection, periorbital swelling ENT exam: Present: normal oropharynx, mucous membranes moist. Absent: normal external ear exam Expanded Mouth exam: Absent: drooling Teeth exam: Present: normal inspection Throat exam: normal inspection Neck exam: Present: normal inspection, full ROM. Absent: tenderness Respiratory exam: Present: normal lung sounds bilaterally. Absent: respiratory distress, wheezes, rales, rhonchi, stridor, accessory muscle use Cardiovascular Exam: Present: regular rate, normal rhythm, normal heart sounds. Absent: systolic murmur, diastolic murmur, rubs, gallop, clicks GI/Abdominal exam: Present: soft, normal bowel sounds. Absent: distended, tenderness, guarding, rebound, rigid Extremities exam: Present: normal inspection, full ROM. Absent: pedal edema, j oint swelling Back exam: Present: normal inspection Neurological exam: Present: alert, oriented X3, CN II-XII intact Psychiatric exam: Present: flat affect Skin exam: Present: warm, dry, abrasion (left upper lip) Course Vital Signs 01/03/23 01/03/23 01/03/23 15:44 15:49 17:13 Temperature 98.3 F Pulse Rate 90 83 86 Respiratory 16 16 16 Rate Blood Pressure 128/81 128/81 138/68 O2 Sat by Pulse 96 97 98 Oximetry 01/03/23 01/03/23 18:00 18:32 Temperature Pulse Rate 68 80 Respiratory 16 16 Rate Blood Pressure 134/67 127/62 O2 Sat by Pulse 100 Oximetry Medical Decision Making - Medical Decision Making Was pt. sent in by a medical professional or institution (, PA, MEDICAL EQUIPMENT REPAIR TECHNICIAN, urgent care, hospital, or halfway...) When possible be specific @ -No Did you speak to anyone other than the patient for history (EMS, parent, family, police, friend...)? What history was obtained from this source @ -Yes, sister at bedside who witnessed seizure, further details of past medical history and presenting illness discussed with her. Did you review nursing and triage notes (agree or disagree)? Why? @ -I reviewed and agree with nursing and triage notes Were old charts reviewed (outside hosp., previous admission, EMS record, old EKG , old radiological studies, urgent care reports/EKG's, halfway records)? Report findings @ -Yes, I reviewed computed tomography scan of brain from 11/29/2021 and most recent EKG on file 04/09/2022 Differential Diagnosis (chest pain, altered mental status, abdominal pain women, abdominal pain men, vaginal bleeding, weakness, fever, dyspnea, syncope, heada michael, dizziness, GI bleed, back pain, seizure, CVA, palpatations, mental health, musculoskeletal)? @ -Differential Seizure: Recurrent seizure disorder, febrile seizure, alcohol withdrawal, stimulants, meningitis, encephalitis, intercranial hemorrhage, intracranial tumor, stroke, eclampsia, thyrotoxicosis, hypocalcemia, hyponatremia, hypernatremia, hypomagnesemia, psychogenic, this is not meant to be an all-inclusive list. EKG interpreted by me (3pts min.). @ -Sinus rhythm, ventricular rate 80 bpm, NC interval 182 ms, QRS duration 73 m s, QT/QTC 332/307 7 ms, PRT axes 133, -4, -8 X-rays interpreted by me (1pt min.). @ -Chest x-ray two-view left basilar linear atelectasis without any consolidation, pleural effusion or pneumothorax. CT interpreted by me (1pt min.). @ -CT of the brain: No acute intracranial process. No intracranial hemorrhage, mass or shift. U/S interpreted by me (1pt. min.). @ -None done What testing was considered but not performed or refused? (CT, X-rays, U/S, labs)? Why? @ -CT of the brain considered but deferred due to known seizure history and return to baseline mental status postictally. What meds were considered but not given or refused? Why? @ -None Did you discuss the management of the patient with other professionals (professionals i.e. , PA, MEDICAL EQUIPMENT REPAIR TECHNICIAN, lab, RT, psych nurse, perinatal social worker, lead caster helper, teacher, licensed loan officer assistant, social work case manager)? Give summary @ -No Was smoking cessation discussed for >3mins.? @ -No Was critical care preformed (if so, how long)? @ -No Were there social determinants of health that impacted care today? How? (Homelessness, low income, unemployed, alcoholism, drug addiction, transportation, low edu. Level, literacy, decrease access to med. care, halfway, rehab)? @ -No Was there de-escalation of care discussed even if they declined (Discuss DNR or withdrawal of care, Hospice)? DNR status @ -No What co-morbidities impacted this encounter? (DM, HTN, Smoking, COPD, CAD, Cancer, CVA, ARF, Chemo, Hep., AIDS, mental health diagnosis, sleep apnea, morbid obesity)? @ -Known seizure history last seizure approximately one year ago. Was patient admitted / discharged? Hospital course, mention meds given and route, prescriptions, significant lab abnormalities, going to OR and other pertinent info. @ -57-year-old female presenting to the emergency room via EMS after a witnessed clonic tonic seizure just prior to arrival to the emergency room. Upon examination postictal state resolved and patient back to baseline mental status. Abrasion to upper lip noted along with headache. Will give morphine for headache and further evaluate abrasion/laceration after pain improved. No indication for computed tomography scan of and baseline mental status with known seizure history. Will give 1 L fluid bolus in addition to 1 L already given by EMS. Will obtain EKG and laboratory studies of CBC, CMP, CK, mag, Clement, cephalic acid, acetaminophen level, alcohol level and urinalysis. Headache persists despite Motrin will give IM Toradol. Laboratory studies reveal significant leukocytosis with WBC count of 19.8 and neutrophils elevated 14.7 no other abnormalities on CBC. CMP shows high chloride 108. Sodium, potassium and magnesium all normal. Phosphorus low 1.9 protein level also low 6.2. Liver and renal function normal. CK level normal. Urinalysis with trace ketones otherwise no abnormalities. Upon further discussion with patient she states that she has had some cough which she treated to allergies over the last week and further evaluation of laboratory studies reveal significant leukocytosis at the time of her last seizure; she states that she was diagnosed with Covid at the time of her last seizure. Will work up leukocytosis further with a chest x-ray along with CT of the brain given persistent headache and viral swabbing for COVID, RSV and influenza. Vital signs stable, no fever, tachycardia or hypotension. Chest x-ray shows basilar atelectasis and linear pattern without any consolidation. CT of the brain with no acute intracranial process. Findings discussed with patient and sister at bedside at length. Advised no indication for further workup at this time. Encouraged good hydration, use of Tylenol 3 starter pack for headache as needed. Strict return parameters to the emergency room discussed. Questions and concerns answered. Will discharge home in stable condition advising follow-up with primary care provider for referral to neurology to further evaluate seizure activity and monitoring for systemic infectious symptoms for leukocytosis along with treatment of headaches with Tylenol 3 starter pack. Undiagnosed new problem with uncertain prognosis? @ -No Drug Therapy requiring intensive monitoring for toxicity (Heparin, Nitro, Insulin, Cardizem)? @ -No Were any procedures done? @ -No Diagnosis/symptom? @ -Seizure Acute, or Chronic, or Acute on Chronic? @ -Acute on chronic Uncomplicated (without systemic symptoms) or Complicated (systemic symptoms)? @ -Uncomplicated Side effects of treatment? @ -No Exacerbation, Progression, or Severe Exacerbation? @ -No Poses a threat to life or bodily function? How? (Chest pain, [place], [place], pneumonia, PE, COPD, DKA, ARF, appy, cholecystitis, CVA, Diverticulitis, Homicidal, Suicidal, threat to staff... and all critical care pts) @ -No Diagnosis/symptom? @ -Acute Acute, or Chronic, or Acute on Chronic? @ -Acute Uncomplicated (without systemic symptoms) or Complicated (systemic symptoms)? @ -Uncomplicated Side effects of treatment? @ -none Exacerbation, Progression, or Severe Exacerbation] @ -no Poses a threat to life or bodily function? @ -no Diagnosis/symptom? @ -Leukocytosis Acute, or Chronic, or Acute on Chronic? @ -Acute Uncomplicated (without systemic symptoms) or Complicated (systemic symptoms)? @ -Uncomplicated Side effects of treatment? @ -none Exacerbation, Progression, or Severe Exacerbation] @ -no Poses a threat to life or bodily function? @ -no Case discussed with Dr. Brown - Lab Data Result diagrams: 01/03/23 16:14 01/03/23 16:14 Lab Results 01/03/23 01/03/23 01/03/23 Range/Units 16:14 16:14 16:14 WBC 19.8 H (3.8-10.6) k/uL RBC 4.42 (3.80-5.40) m/uL Hgb 14.3 (11.4-16.0) gm/dL Hct 42.5 (34.0-46.0) % MCV 96.2 (80.0-100.0) fL MCH 32.4 (25.0-35.0) pg MCHC 33.7 (31.0-37.0) g/dL RDW 12.2 (11.5-15.5) % Plt Count 366 (150-450) k/uL MPV 7.9 Neutrophils % 88 % Lymphocytes % 7 % Monocytes % 3 % Eosinophils % 1 % Basophils % 0 % Neutrophils # 17.4 H (1.3-7.7) k/uL Lymphocytes # 1.4 (1.0-4.8) k/uL Monocytes # 0.7 (0-1.0) k/uL Eosinophils # 0.1 (0-0.7) k/uL Basophils # 0.1 (0-0.2) k/uL Sodium 138 (137-145) mmol/L Potassium 4.2 (3.5-5.1) mmol/L Chloride 108 H (98-107) mmol/L Carbon Dioxide 25 (22-30) mmol/L Anion Gap 5 mmol/L BUN 13 (7-17) mg/dL Creatinine 0.73 (0.52-1.04) mg/dL Est GFR (CKD-EPI)AfAm >90 (>60 ml/min/1.73 sqM) Est GFR (CKD-EPI)NonAf >90 (>60 ml/min/1.73 sqM) Glucose 97 (74-99) mg/dL Calcium 8.6 (8.4-10.2) mg/dL Phosphorus 1.9 L (2.5-4.5) mg/dL Magnesium 1.9 (1.6-2.3) mg/dL Total Bilirubin 0.2 (0.2-1.3) mg/dL AST 26 (14-36) U/L ALT 20 (4-34) U/L Alkaline Phosphatase 84 (38-126) U/L CK-MB (CK-2) 2.0 (0.0-2.4) ng/mL Total Protein 6.2 L (6.3-8.2) g/dL Albumin 3.7 (3.5-5.0) g/dL Urine Color Urine Appearance (Clear) Urine pH (5.0-8.0) Ur Specific [place] (1.001-1.035) Urine Protein (Negative) Urine Glucose (UA) (Negative) Urine Ketones (Negative) Urine Blood (Negative) Urine Nitrite (Negative) Urine Bilirubin (Negative) Urine Urobilinogen (<2.0) mg/dL Ur Leukocyte Esterase (Negative) Salicylates <1.0 mg/dL Acetaminophen <10.0 ug/mL Serum Alcohol <10 mg/dL Influenza Type A (PCR) (Not Detectd) Influenza Type B (PCR) (Not Detectd) RSV (PCR) (Not Detectd) SARS-CoV-2 (PCR) (Not Detectd) 01/03/23 01/03/23 Range/Units 16:37 18:28 WBC (3.8-10.6) k/uL RBC (3.80-5.40) m/uL Hgb (11.4-16.0) gm/dL Hct (34.0-46.0) % MCV (80.0-100.0) fL MCH (25.0-35.0) pg MCHC (31.0-37.0) g/dL RDW (11.5-15.5) % Plt Count (150-450) k/uL MPV Neutrophils % % Lymphocytes % % Monocytes % % Eosinophils % % Basophils % % Neutrophils # (1.3-7.7) k/uL Lymphocytes # (1.0-4.8) k/uL Monocytes # (0-1.0) k/uL Eosinophils # (0-0.7) k/uL Basophils # (0-0.2) k/uL Sodium (137-145) mmol/L Potassium (3.5-5.1) mmol/L Chloride (98-107) mmol/L Carbon Dioxide (22-30) mmol/L Anion Gap mmol/L BUN (7-17) mg/dL Creatinine (0.52-1.04) mg/dL Est GFR (CKD-EPI)AfAm (>60 ml/min/1.73 sqM) Est GFR (CKD-EPI)NonAf (>60 ml/min/1.73 sqM) Glucose (74-99) mg/dL Calcium (8.4-10.2) mg/dL Phosphorus (2.5-4.5) mg/dL Magnesium (1.6-2.3) mg/dL Total Bilirubin (0.2-1.3) mg/dL AST (14-36) U/L ALT (4-34) U/L Alkaline Phosphatase (38-126) U/L CK-MB (CK-2) (0.0-2.4) ng/mL Total Protein (6.3-8.2) g/dL Albumin (3.5-5.0) g/dL Urine Color Colorless Urine Appearance Clear (Clear) Urine pH 5.5 (5.0-8.0) Ur Specific [place] 1.007 (1.001-1.035) Urine Protein Negative (Negative) Urine Glucose (UA) Negative (Negative) Urine Ketones Trace H (Negative) Urine Blood Negative (Negative) Urine Nitrite Negative (Negative) Urine Bilirubin Negative (Negative) Urine Urobilinogen <2.0 (<2.0) mg/dL Ur Leukocyte Esterase Negative (Negative) Salicylates mg/dL Acetaminophen ug/mL Serum Alcohol mg/dL Influenza Type A (PCR) Not Detected (Not Detectd) Influenza Type B (PCR) Not Detected (Not Detectd) RSV (PCR) Not Detected (Not Detectd) SARS-CoV-2 (PCR) Not Detected (Not Detectd) - Radiology Data Radiology results: report reviewed, image reviewed Disposition Clinical Impression: Seizure, Neutrophilic leukocytosis, Headache Disposition: HOME SELF-CARE Condition: Stable Instructions (If sedation given, give patient instructions): Acute Headache (ED), Recurrent Seizures in Adults (ED) Additional Instructions: Utilize Tylenol 3 starter pack as needed for headaches and pain may supplement with [id number] Motrin or Aleve. Keep abrasion to left upper lip clean and dry. Monitor for any symptoms of infection and return to the emergency room immediately if they occur. Do not drive until you are cleared by your primary care provider. It is recommended that you obtain a referral to neurology from your primary care provider for further evaluation of recurrent seizures. Please return to the Emergency Department if symptoms worsen or any other concerns. Is patient prescribed a controlled substance at d/c from ED?: No Referrals: Ck Ackerman DO [Primary Care Provider] - 1-2 days Time of Disposition: 19:32
[2023-01-03 17:16] LABS: Basophils # (A) 0.1 k/uL (0-0.2); Basophils % (A) 0 %; Eosinophils # (A) 0.1 k/uL (0-0.7); Eosinophils % (A) 1 %; HCT 42.5 % (34.0-46.0); HGB 14.3 gm/dL (11.4-16.0); Lymphocytes # (A) 1.4 k/uL (1.0-4.8); Lymphocytes % (A) 7 %; MCH 32.4 pg (25.0-35.0); MCHC 33.7 g/dL (31.0-37.0); MCV 96.2 fL (80.0-100.0); Mean Platelet Volume 7.9; Monocytes # (A) 0.7 k/uL (0-1.0); Monocytes % (A) 3 %; Neutrophils # (A) 17.4 k/uL (1.3-7.7); Neutrophils % (A) 88 %; Platelet Count 366 k/uL (150-450); RBC 4.42 m/uL (3.80-5.40); RDW 12.2 % (11.5-15.5); WBC 19.8 k/uL (3.8-10.6)
[2023-01-03 17:26] LABS: ALT 20 U/L (4-34); AST 26 U/L (14-36); Acetaminophen <10.0 ug/mL; African American GFR (CKD) >90 (>60 ml/min/1.73 sqM); Albumin 3.7 g/dL (3.5-5.0); Alcohol <10 mg/dL; Alkaline Phosphatase 84 U/L (38-126); Anion Gap 5 mmol/L; Blood Urea Nitrogen 13 mg/dL (7-17); Calcium 8.6 mg/dL (8.4-10.2); Carbon Dioxide 25 mmol/L (22-30); Chloride 108 mmol/L (98-107); Glucose 97 mg/dL (74-99); Magnesium 1.9 mg/dL (1.6-2.3); Non-African American GFR(CKD) >90 (>60 ml/min/1.73 sqM); Phosphorus 1.9 mg/dL (2.5-4.5); Potassium 4.2 mmol/L (3.5-5.1); Salicylate <1.0 mg/dL; Sodium 138 mmol/L (137-145); Total Bilirubin 0.2 mg/dL (0.2-1.3); Total Protein 6.2 g/dL (6.3-8.2)
[2023-01-03] MEDS ORDERED: KETOROLAC 15 MG/ML 1 ML VIAL IVP STA (17:48)
[2023-01-03 17:57] LABS: Appearance,Urine Clear (Clear); Bilirubin,Urine Negative (Negative); Blood,Urine Negative (Negative); Color,Urine Colorless; Glucose,Urine (UA) Negative (Negative); Ketones,Urine Trace (Negative); Leukocyte Esterase,Urine Negative (Negative); Nitrite,Urine Negative (Negative); PH, Urine 5.5 (5.0-8.0); Protein,Urine Negative (Negative); Specific Gravity,Urine 1.007 (1.001-1.035); Urobilinogen,Urine <2.0 mg/dL (<2.0)
[2023-01-03 18:33] VITALS: BP 127/62; PULSE 80
--- NOTE | 2023-01-03 18:52 | CT ---
EXAMINATION TYPE: CT brain wo con CT DLP: 1090.4 mGycm, Automated exposure control for dose reduction was used. DATE OF EXAM: 01/03/2023 6:46 PM COMPARISON: CT brain 11/29/2021. CLINICAL INDICATION:Female, 57 years old with history of seizure headache, Witnessed tonic-clonic sei zure x3mins. Abrasion to upper lip. TECHNIQUE: Brain: Axial CT images of the brain were obtained with coronal and sagittal reformats created and rev iewed. Contrast used: None. Oral contrast used: None. FINDINGS: Brain: Extra-axial spaces: No abnormal extra-axial fluid collections. Ventricular system: Within normal limits Cerebral parenchyma: No acute intraparenchymal hemorrhage or mass effect. The rico-white junction is well differentiated. Cerebellum: Unremarkable. Mass effect: No evidence of midline shift. Intracranial vasculature: unremarkable Soft tissues: Normal. Calvarium/osseous structures: No depressed skull fracture. Paranasal sinuses and mastoid air cells: Mild scattered paranasal sinus disease.. Mastoid air cells a re Clear Visualized orbits: Orbital contents are intact. IMPRESSION: No acute intracranial process.
--- NOTE | 2023-01-03 18:56 | XR ---
EXAMINATION TYPE: XR chest 2V DATE OF EXAM: 01/03/2023 6:49 PM COMPARISON: Chest x-ray 04/10/2022 TECHNIQUE: XR chest 2V . CLINICAL INDICATION:Female, 57 years old with history of cough leukocytosis; FINDINGS: Lungs/Pleura: There is no evidence of pleural effusion, focal consolidation, or pneumothorax. Streaky atelectasis of the left lung base. Pulmonary vascularity: Unremarkable. Heart/mediastinum: Cardiomediastinal silhouette is unremarkable. Musculoskeletal: No acute osseous pathology. IMPRESSION: Small focus of atelectasis in the left lower lobe. Otherwise no acute process.
[2023-01-03] MEDS ORDERED: ACET/COD 300 MG/30 MG STARTER PACK 6 TAB BTL PO STA (19:31)
== END 2023-01-03 19:43 | disposition home or self-care (01) ==
LOC: EC 15:39
DX: S00.511A Abrasion of lip, initial encounter (principal); D72.828 Other elevated white blood cell count; R56.9 Unspecified convulsions; F41.9 Anxiety disorder, unspecified; F17.200 Nicotine dependence, unspecified, uncomplicated; Z79.899 Other long term (current) drug therapy; Z88.8 Allergy status to other drugs, medicaments and biological substances; Z20.822 Contact with and (suspected) exposure to COVID-19; X58.XXXA Exposure to other specified factors, initial encounter
CPT/HCPCS: 36415; 93005; 80053; 82553; 83735; 84100; 85025; 81003; 80143; 87636; 80179; 71046; 70450; 99285; 96374; 96375; 96361; G0480; J2270; J1885; 80320

== ENCOUNTER 2023-03-14 14:29 | Emergency (ER) | payer OTHER ==
[2023-03-14] MEDS ORDERED: SODIUM CHLORIDE 0.9% 1,000 ML IV STA (14:48)
[2023-03-14] MEDS ORDERED: KETOROLAC 15 MG/ML 1 ML VIAL IVP STA ×2 (14:49→16:22)
[2023-03-14] MEDS ORDERED: MORPHINE SULFATE 4 MG/ML SYRINGE IVP STA (14:49)
[2023-03-14] MEDS ORDERED: ONDANSETRON 4 MG/2 ML VIAL IVP STA (14:49)
--- NOTE | 2023-03-14 14:53 | ED ---
Seizure HPI - General Chief Complaint: Seizure Stated Complaint: Seizure Time Seen by Provider: 03/14/23 14:44 Source: patient, RN notes reviewed Mode of arrival: wheelchair Limitations: no limitations - History of Present Illness Initial Comments: This is a 57-year-old female who presents to the emergency department for a seizure. Patient has a seizure history and takes Ativan 0.5mg daily, but is otherwise not on any other maintenance medication. She does follow with neurology, Dr. Valdez. Unsure at this point if there is any plan to start other maintenance medication. She lives alone and felt a seizure coming on today. States that she felt kind of "cloudy" and off. She subsequently called her sister, who came right over. She did lay herself on the ground beforehand, in anticipation of the seizure. Her sister states that by the time she arrived, the seizure had stopped. She was however postictal. Currently complaining of a headache and pain to the tongue, which she did bite. Also feels nauseous. Most recent seizure was in December, when the patient came to the hospital and was evaluated and treated at that time. She was discharged home in stable condition. Denies any fevers, chills, sore throat, cough, dyspnea, chest pain, palpitations, abdominal pain, vomiting, diarrhea, or back pain. MD Complaint: seizure - Related Data Home Medications Medication Instructions Recorded Confirmed Dextroamphetamine/Amphetamine 30 mg PO AC-BID 12/03/20 03/14/23 [Adderall] LORazepam [Ativan] 0.5 mg PO DAILY PRN 01/03/23 03/14/23 Allergies Allergy/AdvReac Type Severity Reaction Status Date / Time prochlorperazine edisylate Allergy Anaphylaxis Verified 03/14/23 14:30 [From Compazine] prochlorperazine maleate Allergy Anaphylaxis Verified 03/14/23 14:30 [From Compazine] Review of Systems ROS Statement: Those systems with pertinent positive or pertinent negative responses have been documented in the HPI. ROS Other: All systems not noted in ROS Statement are negative. Past Medical History Past Medical History: Cancer, Seizure Disorder Additional Past Medical History / Comment(s): breast ca bilateral, partial left mastectomy History of Any Multi-Drug Resistant Organisms: None Reported Past Surgical History: Breast Surgery, Hysterectomy Additional Past Surgical History / Comment(s): MASTECTOMY lee modified radical Past Anesthesia/Blood Transfusion Reactions: No Reported Reaction Past Psychological History: ADD/ADHD, Anxiety Smoking Status: Current every day smoker Past Alcohol Use History: Occasional Past Drug Use History: None Reported General Exam Limitations: no limitations General appearance: alert, in no apparent distress Head exam: Present: atraumatic, normocephalic, normal inspection ENT exam: Present: other (Small bite wound to the tongue. No active bleeding.) Respiratory exam: Present: normal lung sounds bilaterally. Absent: respiratory distress, wheezes, rales, rhonchi, stridor Cardiovascular Exam: Present: regular rate, normal rhythm, normal heart sounds. Absent: systolic murmur, diastolic murmur, rubs, gallop, clicks Neurological exam: Present: alert, oriented X3, CN II-XII intact Psychiatric exam: Present: normal affect, normal mood Skin exam: Present: warm, dry, intact, normal color. Absent: rash Course Vital Signs 03/14/23 03/14/23 03/14/23 14:30 16:15 17:30 Temperature 98.9 F Pulse Rate 101 H 98 80 Respiratory 16 18 18 Rate Blood Pressure 117/80 111/54 101/71 O2 Sat by Pulse 97 98 98 Oximetry Medical Decision Making - Medical Decision Making This is a 57-year-old female who presents to the emergency department for a seizure. Was pt. sent in by a medical professional or institution? @ -No Did you speak to anyone other than the patient for history? @ -Her sister, who provided the majority of the information. The patient was explaining where her pain was felt nauseous. Did you review nursing and triage notes? @ -Yes, and I agree, it is accurate with regards to the patient's symptoms. Were old charts reviewed? @ -No Differential Diagnosis? @ -Differential Seizure: Recurrent seizure disorder, febrile seizure, alcohol withdrawal, stimulants, men ingitis, encephalitis, intercranial hemorrhage, intracranial tumor, stroke, eclampsia, thyrotoxicosis, hypocalcemia, hyponatremia, hypernatremia, hypomagnesemia, psychogenic, this is not meant to be an all-inclusive list. EKG interpreted by me (3pts min.)? @ -EKG interpreted by me demonstrating the following: Sinus rhythm. Ventricular rate 90 beats per minute, UT interval 160 ms, QRS duration 86 ms, QTC 379 ms. X-rays interpreted by me (1pt min.)? @ -Not obtained CT interpreted by me (1pt min.)? @ -Computed tomography scan of the brain obtained. My interpretation identifies no evidence of an acute intracranial hemorrhage. U/S interpreted by me (1pt. min.)? @ -Not obtained What testing was considered but not performed? (CT, X-rays, U/S, labs)? Why? @ -None What meds were considered but not given? Why? @ -None Did you discuss the management of the patient with other professionals? @ -No Did you reconcile home meds? @ -No Was smoking cessation discussed for >3mins.? @ -No Was critical care preformed (if so, how long)? @ -No Were there social determinants of health that impacted care today? How? (Homelessness, low income, unemployed, alcoholism, drug addiction, transportation, low edu. Level, literacy, decrease access to med. care, [facility], rehab)? @ -No Was there de-escalation of care discussed even if they declined? (Discuss DNR or withdrawal of care, Hospice)? @ -No What co-morbidities impacted this encounter? (DM, HTN, Smoking, COPD, CAD, Cancer, CVA, Hep., AIDS, mental health diagnosis, sleep apnea, morbid obesity)? @ -Seizure disorder Was patient admitted / discharged? @ -Discharged. Lab work obtained revealing minor leukocytosis, which is typical for the patient with seizures. There are otherwise no actionable findings, including a normal lactic acid and CK. Urinalysis negative for signs of infection. She was initially given a liter bolus of IV fluids and Toradol, Zofran, and morphine for her headache and ongoing nausea. She did however continue to complain of a headache, and states that it became increasingly severe, which is atypical for her after seizures. Given this concern, we obtained a computed tomography scan of the brain. This revealed no acute process. She was then given a dose of Dilaudid, which successfully treated the headache. Discussed with the patient that she will likely need a different maintenance medication than the Ativan 0.5 mg. Instructed her to contact her neurologist and primary care provider's office this week regarding this episode and see if she can be seen in the office sooner or otherwise started on an additional medication. Recommended she alternate with ibuprofen and Tylenol as needed for pain relief. She is reminded to avoid driving for 6 months. Patient discharged home with her sister in stable condition. Undiagnosed new problem with uncertain prognosis? @ -None Drug Therapy requiring intensive monitoring for toxicity (Heparin, Nitro, Insulin, Cardizem)? @ -None Were any procedures done? @ -None Diagnosis/symptom? @ -Breakthrough seizure Acute, or Chronic, or Acute on Chronic? @ -Acute Uncomplicated (without systemic symptoms) or Complicated (systemic symptoms)? @ -Uncomplicated Side effects of treatment? @ -None Exacerbation, Progression, or Severe Exacerbation] @ -Not applicable Poses a threat to life or bodily function? @ -This event in itself is not, however if she continues to have uncontrolled seizures and is not properly medicated, it could become a life threatening issue. Return precautions reviewed in depth, the patient is instructed to return to the emergency department with any new, worsening, or concerning symptoms. Patient verbalized understanding. This case was discussed in detail with the attending ED physician, Dr. Alvarenga. Presentation, findings, and treatment plan discussed in detail as well. - Lab Data Result diagrams: 03/14/23 14:54 03/14/23 14:54 Lab Results 03/14/23 03/14/23 03/14/23 Range/Units 14:52 14:54 14:54 WBC 12.2 H (3.8-10.6) k/uL RBC 4.19 (3.80-5.40) m/uL Hgb 14.1 (11.4-16.0) gm/dL Hct 40.2 (34.0-46.0) % MCV 95.9 (80.0-100.0) fL MCH 33.7 (25.0-35.0) pg MCHC 35.2 (31.0-37.0) g/dL RDW 12.3 (11.5-15.5) % Plt Count 281 (150-450) k/uL MPV 7.9 Neutrophils % 76 % Lymphocytes % 16 % Monocytes % 4 % Eosinophils % 1 % Basophils % 0 % Neutrophils # 9.3 H (1.3-7.7) k/uL Lymphocytes # 2.0 (1.0-4.8) k/uL Monocytes # 0.5 (0-1.0) k/uL Eosinophils # 0.2 (0-0.7) k/uL Basophils # 0.1 (0-0.2) k/uL Sodium (137-145) mmol/L Potassium (3.5-5.1) mmol/L Chloride (98-107) mmol/L Carbon Dioxide (22-30) mmol/L Anion Gap mmol/L BUN (7-17) mg/dL Creatinine (0.52-1.04) mg/dL Est GFR (CKD-EPI)AfAm (>60 ml/min/1.73 sqM) Est GFR (CKD-EPI)NonAf (>60 ml/min/1.73 sqM) Glucose (74-99) mg/dL POC Glucose (mg/dL) 124 H (70-110) mg/dL POC Glu Shirt Closer ID Damaris Freeman Plasma Lactic Acid Mervin (0.7-2.0) mmol/L Calcium (8.4-10.2) mg/dL Magnesium (1.6-2.3) mg/dL Total Bilirubin (0.2-1.3) mg/dL AST (14-36) U/L ALT (4-34) U/L Alkaline Phosphatase (38-126) U/L Creatine Kinase (30-135) U/L Total Protein (6.3-8.2) g/dL Albumin (3.5-5.0) g/dL Urine Color Light Yellow Urine Appearance Clear (Clear) Urine pH 5.5 (5.0-8.0) Ur Specific [place] 1.014 (1.001-1.035) Urine Protein Negative (Negative) Urine Glucose (UA) Negative (Negative) Urine Ketones Negative (Negative) Urine Blood Negative (Negative) Urine Nitrite Negative (Negative) Urine Bilirubin Negative (Negative) Urine Urobilinogen <2.0 (<2.0) mg/dL Ur Leukocyte Esterase Negative (Negative) Urine Opiates Screen Detected H (NotDetected) Ur Oxycodone Screen Not Detected (NotDetected) Urine Methadone Screen Not Detected (NotDetected) Ur Propoxyphene Screen Not Detected (NotDetected) Ur Barbiturates Screen Not Detected (NotDetected) U Tricyclic Antidepress Not Detected (NotDetected) Ur Phencyclidine Scrn Not Detected (NotDetected) Ur Amphetamines Screen Not Detected (NotDetected) U Methamphetamines Scrn Not Detected (NotDetected) U Benzodiazepines Scrn Detected H (NotDetected) Urine Cocaine Screen Not Detected (NotDetected) U Marijuana (THC) Screen Not Detected (NotDetected) Serum Alcohol mg/dL 03/14/23 03/14/23 Range/Units 14:54 14:54 WBC (3.8-10.6) k/uL RBC (3.80-5.40) m/uL Hgb (11.4-16.0) gm/dL Hct (34.0-46.0) % MCV (80.0-100.0) fL MCH (25.0-35.0) pg MCHC (31.0-37.0) g/dL RDW (11.5-15.5) % Plt Count (150-450) k/uL MPV Neutrophils % % Lymphocytes % % Monocytes % % Eosinophils % % Basophils % % Neutrophils # (1.3-7.7) k/uL Lymphocytes # (1.0-4.8) k/uL Monocytes # (0-1.0) k/uL Eosinophils # (0-0.7) k/uL Basophils # (0-0.2) k/uL Sodium 135 L (137-145) mmol/L Potassium 4.0 (3.5-5.1) mmol/L Chloride 110 H (98-107) mmol/L Carbon Dioxide 19 L (22-30) mmol/L Anion Gap 6 mmol/L BUN 17 (7-17) mg/dL Creatinine 0.74 (0.52-1.04) mg/dL Est GFR (CKD-EPI)AfAm >90 (>60 ml/min/1.73 sqM) Est GFR (CKD-EPI)NonAf >90 (>60 ml/min/1.73 sqM) Glucose 114 H (74-99) mg/dL POC Glucose (mg/dL) (70-110) mg/dL POC Glu Shirt Closer ID Plasma Lactic Acid Mervin 1.6 (0.7-2.0) mmol/L Calcium 8.6 (8.4-10.2) mg/dL Magnesium 1.6 (1.6-2.3) mg/dL Total Bilirubin 0.3 (0.2-1.3) mg/dL AST 21 (14-36) U/L ALT 17 (4-34) U/L Alkaline Phosphatase 73 (38-126) U/L Creatine Kinase 60 (30-135) U/L Total Protein 6.0 L (6.3-8.2) g/dL Albumin 3.4 L (3.5-5.0) g/dL Urine Color Urine Appearance (Clear) Urine pH (5.0-8.0) Ur Specific [place] (1.001-1.035) Urine Protein (Negative) Urine Glucose (UA) (Negative) Urine Ketones (Negative) Urine Blood (Negative) Urine Nitrite (Negative) Urine Bilirubin (Negative) Urine Urobilinogen (<2.0) mg/dL Ur Leukocyte Esterase (Negative) Urine Opiates Screen (NotDetected) Ur Oxycodone Screen (NotDetected) Urine Methadone Screen (NotDetected) Ur Propoxyphene Screen (NotDetected) Ur Barbiturates Screen (NotDetected) U Tricyclic Antidepress (NotDetected) Ur Phencyclidine Scrn (NotDetected) Ur Amphetamines Screen (NotDetected) U Methamphetamines Scrn (NotDetected) U Benzodiazepines Scrn (NotDetected) Urine Cocaine Screen (NotDetected) U Marijuana (THC) Screen (NotDetected) Serum Alcohol <10 mg/dL - Radiology Data Radiology results: report reviewed, image reviewed Disposition Clinical Impression: Generalized seizure, Seizure disorder Disposition: HOME SELF-CARE Instructions (If sedation given, give patient instructions): Seizure/Epilepsy Discharge Instructions & Follow-Up, Recurrent Seizures in Adults (ED) Additional Instructions: Return to the emergency department with any new, worsening, or concerning symptoms. You cannot drive for 6 months. Alternate with ibuprofen and Tylenol as needed for pain relief. Follow up with your primary care provider and neurologist in 1-2 days. Is patient prescribed a controlled substance at d/c from ED?: No Referrals: Ck Ackerman DO [Primary Care Provider] - 1-2 days
[2023-03-14 14:54] LABS: Glucose,Whole Blood 124 mg/dL (70-110)
[2023-03-14 15:20] LABS: Basophils # (A) 0.1 k/uL (0-0.2); Basophils % (A) 0 %; Eosinophils # (A) 0.2 k/uL (0-0.7); Eosinophils % (A) 1 %; HCT 40.2 % (34.0-46.0); HGB 14.1 gm/dL (11.4-16.0); Lymphocytes % (A) 16 %; MCH 33.7 pg (25.0-35.0); MCHC 35.2 g/dL (31.0-37.0); MCV 95.9 fL (80.0-100.0); Mean Platelet Volume 7.9; Monocytes # (A) 0.5 k/uL (0-1.0); Monocytes % (A) 4 %; Neutrophils # (A) 9.3 k/uL (1.3-7.7); Neutrophils % (A) 76 %; Platelet Count 281 k/uL (150-450); RBC 4.19 m/uL (3.80-5.40); RDW 12.3 % (11.5-15.5); WBC 12.2 k/uL (3.8-10.6)
[2023-03-14 15:33] LABS: ALT 17 U/L (4-34); AST 21 U/L (14-36); African American GFR (CKD) >90 (>60 ml/min/1.73 sqM); Albumin 3.4 g/dL (3.5-5.0); Alcohol <10 mg/dL; Alkaline Phosphatase 73 U/L (38-126); Anion Gap 6 mmol/L; Blood Urea Nitrogen 17 mg/dL (7-17); Calcium 8.6 mg/dL (8.4-10.2); Carbon Dioxide 19 mmol/L (22-30); Chloride 110 mmol/L (98-107); Creatine Kinase 60 U/L (30-135); Glucose 114 mg/dL (74-99); Magnesium 1.6 mg/dL (1.6-2.3); Non-African American GFR(CKD) >90 (>60 ml/min/1.73 sqM); Sodium 135 mmol/L (137-145); Total Bilirubin 0.3 mg/dL (0.2-1.3)
[2023-03-14] MEDS ORDERED: HYDROmorphone 0.5 MG/0.5 ML SYRINGE IVP STA (16:22)
[2023-03-14] MEDS ORDERED: METOCLOPRAMIDE 5 MG/ML 2 ML VIAL IVP STA (16:22)
[2023-03-14 16:29] LABS: Appearance,Urine Clear (Clear); Bilirubin,Urine Negative (Negative); Blood,Urine Negative (Negative); Color,Urine Light Yellow; Glucose,Urine (UA) Negative (Negative); Ketones,Urine Negative (Negative); Leukocyte Esterase,Urine Negative (Negative); Nitrite,Urine Negative (Negative); PH, Urine 5.5 (5.0-8.0); Protein,Urine Negative (Negative); Specific Gravity,Urine 1.014 (1.001-1.035); Urobilinogen,Urine <2.0 mg/dL (<2.0)
[2023-03-14 16:38] VITALS: RESP 18
[2023-03-14 16:40] LABS: Amphetamine Screen,Urine Not Detected (NotDetected); Barbiturate Screen,Urine Not Detected (NotDetected); Benzodiazepines Screen,Urine Detected (NotDetected); Cocaine Screen,Urine Not Detected (NotDetected); Methadone Screen, Urine Not Detected (NotDetected); Opiate Screen,Urine Detected (NotDetected); Oxycodone Screen, Urine Not Detected (NotDetected); Phencyclidine Screen,Urine Not Detected (NotDetected); Tricyclic Antidepressant,Urine Not Detected (NotDetected); Urn Cannabinoid Scrn Not Detected (NotDetected)
--- NOTE | 2023-03-14 17:14 | CT ---
EXAMINATION TYPE: CT brain wo con DATE OF EXAM: 03/14/2023 COMPARISON: 01/03/2023 INDICATION: Seizure, headache. DLP: 1090.4 mGycm, Automated exposure control for dose reduction was used. CONTRAST: None CT of the brain is performed utilizing 3 mm thick sections through the posterior fossa and 3 mm thick sections through the remaining calvarium. Study is performed within 24 hours of arrival to the hosp [facility]. No abnormal hyperdensity is present to suggest an acute intracranial hemorrhage. No mass lesion is evident. No acute infarcts are evident. Ventricles and sulci are appropriate for the patient age. Paranasal sinuses and mastoid air cells within the [id number] are clear. IMPRESSIONS: 1. No acute intracranial process. Follow-up MRI can be performed as clinically indicated.
[2023-03-14] MEDS ORDERED: ACET/COD 300 MG/30 MG STARTER PACK 6 TAB BTL PO STA (17:30)
[2023-03-14] MEDS ORDERED: ONDANSETRON 4 MG ODT STARTER PACK 2 TAB BTL PO STA (17:30)
[2023-03-14] MEDS ORDERED: IBUPROFEN 600 MG STARTER PACK 4 TAB BTL PO STA (17:30)
[2023-03-14 17:38] VITALS: BP 101/71; PULSE 80
[2023-03-14 18:02] VITALS: TEMP 98.2
== END 2023-03-14 18:02 | disposition home or self-care (01) ==
LOC: EC 14:29
DX: G40.409 Other generalized epilepsy and epileptic syndromes, not intractable, without status epilepticus (principal); F90.9 Attention-deficit hyperactivity disorder, unspecified type; F41.9 Anxiety disorder, unspecified; F17.200 Nicotine dependence, unspecified, uncomplicated; Z88.6 Allergy status to analgesic agent; Z88.8 Allergy status to other drugs, medicaments and biological substances; Z79.899 Other long term (current) drug therapy
CPT/HCPCS: 36415; 93005; 80053; 82550; 83605; 83735; 85025; 81003; 80306; 70450; 99285; 96374; 96375 ×4; 96376; 96361 ×3; G0480; J2270; J2765; J2405; J1885; S0119; J1170; 80320

== ENCOUNTER 2023-06-24 15:28 | Inpatient (IN) | payer OTHER ==
[2023-06-24] MEDS ORDERED: SODIUM CHLORIDE 0.9% 1,000 ML IV STA (16:05)
--- NOTE | 2023-06-24 16:06 | ED ---
Seizure HPI - General Chief Complaint: Seizure Stated Complaint: siezures Time Seen by Provider: 06/24/23 15:48 Source: patient, RN notes reviewed, old records reviewed, Caregiver Mode of arrival: ambulatory Limitations: no limitations - History of Present Illness Initial Comments: This is a 57-year-old female to the emergency department for evaluation recurrent seizure today. Patient states she has multiple ER visits this hospital for seizure-like activity and has never followed up with a neurologist. Friend who is at bedside is concerned over patient's lack of seeing a neurologist on her own basis. Patient does complain of headache she did hit her head prior to arrival with during the seizure MD Complaint: seizure, possible seizure -: minutes(s) Description of Episode: loss of consciousness, tonic-clonic movement, post-event confusion -: second(s) Witnessed: yes - by bystander Trauma: Yes Seizure History: known seizure disorder, history of non-compliance with t reatment Place: home Possible Precipitating Event: none Treatments Prior to Arrival: none - Related Data Home Medications Medication Instructions Recorded Confirmed Dextroamphetamine/Amphetamine 30 mg PO AC-BID 12/03/20 06/24/23 [Adderall] LORazepam [Ativan] 0.5 mg PO DAILY PRN 01/03/23 06/24/23 Previous Rx's Medication Instructions Recorded Acetaminophen Tab [Tylenol] 325 mg PO Q6HR PRN #20 tab 06/27/23 levETIRAcetam [Keppra] 750 mg PO Q12HR #60 tab 06/27/23 Allergies Allergy/AdvReac Type Severity Reaction Status Date / Time prochlorperazine edisylate Allergy Anaphylaxis Verified 06/24/23 20:02 [From Compazine] prochlorperazine maleate Allergy Anaphylaxis Verified 06/24/23 20:02 [From Compazine] Review of Systems ROS Statement: Those systems with pertinent positive or pertinent negative responses have been documented in the HPI. ROS Other: All systems not noted in ROS Statement are negative. Past Medical History Past Medical History: Cancer, Seizure Disorder Additional Past Medical History / Comment(s): breast ca bilateral, partial left mastectomy History of Any Multi-Drug Resistant Organisms: None Reported Past Surgical History: Breast Surgery, Hysterectomy Additional Past Surgical History / Comment(s): MASTECTOMY lee modified radical Past Anesthesia/Blood Transfusion Reactions: No Reported Reaction Past Psychological History: ADD/ADHD, Anxiety Smoking Status: Current every day smoker Past Alcohol Use History: Occasional Past Drug Use History: None Reported - Past Family History Mother Family Medical History: Congestive Heart Failure (CHF) Father Family Medical History: Congestive Heart Failure (CHF) General Exam Limitations: no limitations General appearance: alert, in no apparent distress Head exam: Present: atraumatic, normocephalic, normal inspection Eye exam: Present: normal appearance, PERRL, EOMI. Absent: scleral icterus, conjunctival injection, periorbital swelling ENT exam: Present: normal exam, mucous membranes moist Neck exam: Present: normal inspection. Absent: tenderness, meningismus, lymphadenopathy Respiratory exam: Present: normal lung sounds bilaterally. Absent: respiratory distress, wheezes, rales, rhonchi, stridor Cardiovascular Exam: Present: regular rate, normal rhythm, normal heart sounds. Absent: systolic murmur, diastolic murmur, rubs, gallop, clicks GI/Abdominal exam: Present: soft, normal bowel sounds. Absent: distended, tenderness, guarding, rebound, rigid Extremities exam: Present: normal inspection, full ROM, normal capillary refill. Absent: tenderness, pedal edema, joint swelling, calf tenderness Back exam: Present: normal inspection Neurological exam: Present: alert, oriented X3, CN II-XII intact Psychiatric exam: Present: normal affect, normal mood Skin exam: Present: warm, dry, intact, normal color. Absent: rash Course Vital Signs 06/24/23 06/24/23 06/24/23 15:41 17:59 18:42 Temperature 98.8 F Pulse Rate 100 87 84 Respiratory 20 18 18 Rate Blood Pressure 106/66 117/60 112/64 O2 Sat by Pulse 97 96 94 L Oximetry 06/24/23 06/25/23 06/25/23 20:49 00:27 02:49 Temperature 98.0 F Pulse Rate 85 64 67 Respiratory 18 18 14 Rate Blood Pressure 100/59 99/66 94/55 O2 Sat by Pulse 98 96 Oximetry 06/25/23 06:23 Temperature Pulse Rate 64 Respiratory 16 Rate Blood Pressure 98/57 O2 Sat by Pulse 96 Oximetry - Reevaluation(s) Reevaluation #1: 06/24/23 19:59 Medical records reviewed Reevaluation #2: 06/24/23 19:59 Patient has no recurrent seizure here in the ER but does not fill comfortable with discharge Reevaluation #3: 06/24/23 19:59 Patient informed results questions answered Reevaluation #4: 06/24/23 19:59 Was pt. sent in by a medical professional or institution (RYAN Joyce, [employer], urgent care, hospital, or snf...) When possible be specific @ -no Did you speak to anyone other than the patient for history (EMS, parent, family, police, friend...)? What history was obtained from this source @ -no Did you review nursing and triage notes (agree or disagree)? Why? @ -agree Are old charts reviewed (outside hosp., previous admission, EMS record, old EKG, old radiological studies, urgent care reports/EKG's, snf records)? Report findings @ -yes Differential Diagnosis (chest pain, altered mental status, abdominal pain women, abdominal pain men, vaginal bleeding, weakness, fever, dyspnea, syncope, headache, dizziness, GI bleed, back pain, seizure, CVA, palpatations, mental health, musculoskeletal)? @ -prior EKG interpreted by me (3pts min.). @ -yes X-rays interpreted by me (1pt min.). @ -no CT interpreted by me (1pt min.). @ -yes U/S interpreted by me (1pt. min.). @ -no What testing was considered but not performed or refused? (CT, X-rays, U/S, labs)? Why? @ -none What meds were considered but not given or refused? Why? @ -none Did you discuss the management of the patient with other professionals (professionals i.e. RYAN Joyce, [employer], lab, RT, psych nurse, elementary school social worker, oxygen tank filler, teacher, real estate officer, housing case manager)? Give summary @ -no Was smoking cessation discussed for >3mins.? @ -no Was critical care preformed (if so, how long)? @ -no Were there social determinants of health that impacted care today? How? (Homelessness, low income, unemployed, alcoholism, drug addiction, transportation, low edu. Level, literacy, decrease access to med. care, shelter, rehab)? @ -none Was there de-escalation of care discussed even if they declined (Discuss DNR or withdrawal of care, Hospice)? DNR status @ -no What co-morbidities impacted this encounter? (DM, HTN, Smoking, COPD, CAD, Cancer, CVA, ARF, Chemo, Hep., AIDS, mental health diagnosis, sleep apnea, morbid obesity)? @ -none Was patient admitted / discharged? Hospital course, mention meds given and route, prescriptions, significant lab abnormalities, going to OR and other pertinent info. @ - 57 female to the emergency department for evaluation of recurrent seizure. Patient will be admitted for neurology evaluation regarding not compliant with treatment in regards to seizures Admitted Undiagnosed new problem with uncertain prognosis? @ -no Drug Therapy requiring intensive monitoring for toxicity (Heparin, Nitro, Insulin, Cardizem)? @ -no Were any procedures done? @ -no Diagnosis/symptom? @ -Recurrent seizure Acute, or Chronic, or Acute on Chronic? @ -Acute Uncomplicated (without systemic symptoms) or Complicated (systemic symptoms)? @ -Complicated Side effects of treatment? @ -no Exacerbation, Progression, or Severe Exacerbation? @ -exacerbation Poses a threat to life or bodily function? How? (Chest pain, [place], [place], pneumonia, PE, COPD, DKA, ARF, appy, cholecystitis, CVA, Diverticulitis, Homicidal, Suicidal, threat to staff... and all critical care pts) @ -yes with recurrent seizures, status epilepticus Reevaluation #5: 06/24/23 19:59 Differential Seizure: Recurrent seizure disorder, febrile seizure, alcohol withdrawal, stimulants, meningitis, encephalitis, intercranial hemorrhage, intracranial tumor, stroke, eclampsia, thyrotoxicosis, hypocalcemia, hyponatremia, hypernatremia, hypomagnesemia, psychogenic, this is not meant to be an all-inclusive list. - Consultations Consultation #1: spoke w [facility] who agrees to admit this patient Medical Decision Making - Medical Decision Making 57 female to the emergency department for evaluation of recurrent seizure. Patient will be admitted for neurology evaluation regarding not compliant with treatment in regards to seizures - Lab Data Result diagrams: 06/25/23 05:58 06/25/23 05:58 Lab Results 06/24/23 06/24/23 06/24/23 Range/Units 16:05 16:20 16:20 WBC 11.0 H (3.8-10.6) k/uL RBC 4.74 (3.80-5.40) m/uL Hgb 15.3 (11.4-16.0) gm/dL Hct 45.1 (34.0-46.0) % MCV 95.1 (80.0-100.0) fL MCH 32.4 (25.0-35.0) pg MCHC 34.0 (31.0-37.0) g/dL RDW 12.1 (11.5-15.5) % Plt Count 247 (150-450) k/uL MPV 7.5 Neutrophils % 81 % Lymphocytes % 12 % Monocytes % 5 % Eosinophils % 1 % Basophils % 0 % Neutrophils # 8.8 H (1.3-7.7) k/uL Lymphocytes # 1.3 (1.0-4.8) k/uL Monocytes # 0.5 (0-1.0) k/uL Eosinophils # 0.2 (0-0.7) k/uL Basophils # 0.0 (0-0.2) k/uL Sodium 142 (137-145) mmol/L Potassium 4.3 (3.5-5.1) mmol/L Chloride 110 H (98-107) mmol/L Carbon Dioxide 23 (22-30) mmol/L Anion Gap 9 mmol/L BUN 20 H (7-17) mg/dL Creatinine 0.88 (0.52-1.04) mg/dL Est GFR (CKD-EPI)AfAm 86 (>60 ml/min/1.73 sqM) Est GFR (CKD-EPI)NonAf 75 (>60 ml/min/1.73 sqM) Glucose 129 H (74-99) mg/dL Calcium 9.3 (8.4-10.2) mg/dL Magnesium 1.8 (1.6-2.3) mg/dL Total Bilirubin 0.3 (0.2-1.3) mg/dL AST 31 (14-36) U/L ALT 33 (4-34) U/L Alkaline Phosphatase 90 (38-126) U/L Total Protein 6.5 (6.3-8.2) g/dL Albumin 3.9 (3.5-5.0) g/dL Salicylates <1.0 mg/dL Urine Opiates Screen Detected H (NotDetected) Ur Oxycodone Screen Not Detected (NotDetected) Urine Methadone Screen Not Detected (NotDetected) Ur Propoxyphene Screen Not Detected (NotDetected) Acetaminophen <10.0 ug/mL Ur Barbiturates Screen Not Detected (NotDetected) U Tricyclic Antidepress Not Detected (NotDetected) Ur Phencyclidine Scrn Not Detected (NotDetected) Ur Amphetamines Screen Not Detected (NotDetected) U Methamphetamines Scrn Not Detected (NotDetected) U Benzodiazepines Scrn Detected H (NotDetected) Urine Cocaine Screen Not Detected (NotDetected) U Marijuana (THC) Screen Not Detected (NotDetected) - EKG Data -: EKG Interpreted by Me (EKG is sinus 83 ND 161 QRS 78 QTc 377) - Radiology Data Radiology results: report reviewed (CT brain is negative for acute disease), image reviewed Disposition Clinical Impression: Generalized seizure, Intractable seizure disorder Disposition: HOME SELF-CARE Condition: Good Is patient prescribed a controlled substance at d/c from ED?: No Time of Disposition: 19:45
[2023-06-24] MEDS ORDERED: ONDANSETRON 4 MG/2 ML VIAL IVP STA (16:22)
[2023-06-24 16:35] LABS: Basophils % (A) 0 %; Eosinophils # (A) 0.2 k/uL (0-0.7); Eosinophils % (A) 1 %; HCT 45.1 % (34.0-46.0); HGB 15.3 gm/dL (11.4-16.0); Lymphocytes # (A) 1.3 k/uL (1.0-4.8); Lymphocytes % (A) 12 %; MCH 32.4 pg (25.0-35.0); MCV 95.1 fL (80.0-100.0); Mean Platelet Volume 7.5; Monocytes # (A) 0.5 k/uL (0-1.0); Monocytes % (A) 5 %; Neutrophils # (A) 8.8 k/uL (1.3-7.7); Neutrophils % (A) 81 %; Platelet Count 247 k/uL (150-450); RBC 4.74 m/uL (3.80-5.40); RDW 12.1 % (11.5-15.5)
[2023-06-24] MEDS ORDERED: LORazepam 2 MG/ML INJ IV STA (16:54)
[2023-06-24 17:12] LABS: ALT 33 U/L (4-34); AST 31 U/L (14-36); Acetaminophen <10.0 ug/mL; African American GFR (CKD) 86 (>60 ml/min/1.73 sqM); Albumin 3.9 g/dL (3.5-5.0); Alkaline Phosphatase 90 U/L (38-126); Anion Gap 9 mmol/L; Blood Urea Nitrogen 20 mg/dL (7-17); Calcium 9.3 mg/dL (8.4-10.2); Carbon Dioxide 23 mmol/L (22-30); Chloride 110 mmol/L (98-107); Glucose 129 mg/dL (74-99); Magnesium 1.8 mg/dL (1.6-2.3); Non-African American GFR(CKD) 75 (>60 ml/min/1.73 sqM); Potassium 4.3 mmol/L (3.5-5.1); Salicylate <1.0 mg/dL; Sodium 142 mmol/L (137-145); Total Bilirubin 0.3 mg/dL (0.2-1.3); Total Protein 6.5 g/dL (6.3-8.2)
[2023-06-24] MEDS ORDERED: MORPHINE SULFATE 4 MG/ML SYRINGE IVP STA (17:14)
--- NOTE | 2023-06-24 19:31 | CT ---
EXAMINATION TYPE: CT brain wo con DATE OF EXAM: 06/24/2023 HISTORY: Seizure. Headache. CT DLP: 1095.4 mGycm. Automated Exposure Control for Dose Reduction was Utilized. TECHNIQUE: CT scan of the head is performed without contrast. COMPARISON: None. FINDINGS: There is no acute intracranial hemorrhage or midline shift identified. No skull fracture. T he globes are intact and the paranasal sinuses and middle ear cavities and mastoid sinus air cells ar e clear. IMPRESSION: No acute process.
[2023-06-24] MEDS ORDERED: NALOXONE 0.4 MG/ML 1 ML VIAL IV PRN (19:50)
[2023-06-24] MEDS ORDERED: MORPHINE SULFATE 4 MG/ML SYRINGE IV PRN (19:50)
[2023-06-24] MEDS ORDERED: ONDANSETRON 4 MG/2 ML VIAL IVP PRN (19:50)
[2023-06-24] MEDS ORDERED: levETIRAcetam IV 500 MG/5 ML VIAL IVP STA (19:51)
[2023-06-24 22:19] LABS: Cocaine Screen,Urine Not Detected (NotDetected); Phencyclidine Screen,Urine Not Detected (NotDetected); Urn Cannabinoid Scrn Not Detected (NotDetected)
[2023-06-24 22:20] LABS: Amphetamine Screen,Urine Not Detected (NotDetected); Barbiturate Screen,Urine Not Detected (NotDetected); Benzodiazepines Screen,Urine Detected (NotDetected); Methadone Screen, Urine Not Detected (NotDetected); Opiate Screen,Urine Detected (NotDetected); Oxycodone Screen, Urine Not Detected (NotDetected); Tricyclic Antidepressant,Urine Not Detected (NotDetected)
[2023-06-25] MEDS ORDERED: levETIRAcetam IV 500 MG/5 ML VIAL IVP SCH (09:00)
--- NOTE | 2023-06-25 09:39 | P.HPIM ---
History of Present Illness This is a pleasant 57 years old female with past medical history of bilateral breast cancers and recurrent seizure She has been here in this facility emergency room for seizure twice already this year on December and March. Patient states she takes lorazepam at bedtime for seizure she is not taking Keppra at home. Daughter low at bedside also. Patient says she came yesterday because she thinks she had a seizure, she says she ran out of her medication the lorazepam at bedtime because she did not take it Wednesday night and Wednesday night, that night she felt like as if she is going to have seizure, as she felt of and drained with headache and she thinks this will happen she will have seizure so she went lay down in her bed and call her son was at work, then patient cannot remember what happened, as per daughter in law says that her centigrade 20 minutes come to his mother house, the next thing she remembers is that her son is next to her in her bed , seizure activity was burst this, she denies urinary or bowel incontinence, no tongue biting But she has abrasion in her upper lip with slight swelling and the patient and family thinks that from fall during the seizure. Currently patient denies any specific symptoms, no headache dizziness weakness numbness, no change in urine or bowel habits, no urgency or change in frequency or dysuria. She denies weakness or numbness. Vital signs stable Labs reviewed and there were unremarkable Urine drug screen is positive for opiates and benzodiazepines Salicylates and acetaminophen levels are negative. CT of the brain is negative EKG: Normal sinus rhythm at [address] T changes EEG is ordered and pending and patient was started on Keppra and emergency room. Review of Systems Review of systems CONSTITUTIONAL: No fever, no malaise, no fatigue. HEENT: No recent visual problems or hearing problems. Denied any sore throat. CARDIOVASCULAR: No orthopnea, PND, no palpitations, no syncope. PULMONARY: No shortness of breath, no cough, no hemoptysis. GASTROINTESTINAL: No diarrhea, no nausea, no vomiting, no abdominal pain. Normoactive bowel sounds. NEUROLOGICAL: No headaches, no weakness, no numbness. HEMATOLOGICAL: Denies any bleeding or petechiae. GENITOURINARY: Denies any burning micturition, frequency, or urgency. MUSCULOSKELETAL/RHEUMATOLOGICAL: Denies any joint pain, swelling, or any muscle pain. ENDOCRINE: Denies any polyuria or polydipsia. Past Medical History Past Medical History: Cancer, Seizure Disorder Additional Past Medical History / Comment(s): breast ca bilateral History of Any Multi-Drug Resistant Organisms: None Reported Past Surgical History: Breast Surgery, Hysterectomy Additional Past Surgical History / Comment(s): MASTECTOMY lee modified radical Past Anesthesia/Blood Transfusion Reactions: No Reported Reaction Smoking Status: Current every day smoker - Past Family History Mother Family Medical History: Congestive Heart Failure (CHF) Father Family Medical History: Congestive Heart Failure (CHF) Medications and Allergies Home Medications Medication Instructions Recorded Confirmed Type Dextroamphetamine/Amphetamine 30 mg PO AC-BID 12/03/20 06/24/23 History [Adderall] LORazepam [Ativan] 0.5 mg PO DAILY PRN 01/03/23 06/24/23 History Allergies Allergy/AdvReac Type Severity Reaction Status Date / Time prochlorperazine edisylate Allergy Anaphylaxis Verified 06/24/23 20:02 [From Compazine] prochlorperazine maleate Allergy Anaphylaxis Verified 06/24/23 20:02 [From Compazine] Physical Exam Vitals: Vital Signs Temp Pulse Pulse Resp BP BP Pulse Ox 06/25/23 08:07 98.2 F 65 18 94/57 96 06/25/23 06:23 64 16 98/57 96 06/25/23 02:49 67 14 94/55 96 06/25/23 00:27 98.0 F 64 18 99/66 98 06/24/23 20:49 85 18 100/59 06/24/23 18:42 84 18 112/64 94 L 06/24/23 17:59 87 18 117/60 96 06/24/23 15:41 98.8 F 100 20 106/66 97 Intake and Output 06/24/23 06/25/23 06/25/23 22:59 06:59 14:59 Output Total 100 Balance -100 Output: Urine 100 Other: Weight 49.895 kg 49.895 kg GENERAL: The patient is alert and oriented x3, not in any acute distress. Well developed, well nourished. HEENT: Pupils are round and equally reacting to light. EOMI. No scleral icterus. No conjunctival pallor. Normocephalic, atraumatic. No pharyngeal erythema. No thyromegaly. CARDIOVASCULAR: S1 and S2 present. No murmurs, rubs, or gallops. PULMONARY: Chest is clear to auscultation, no wheezing , no crackles. ABDOMEN: Soft, nontender, nondistended, normoactive bowel sounds. No palpable organomegaly. MUSCULOSKELETAL: No joint swelling or deformity. EXTREMITIES: No cyanosis, clubbing, or pedal edema. NEUROLOGICAL: Gross neurological examination did not reveal any focal deficits. SKIN: No rashes. no petechiae. Results CBC & Chem 7: 06/24/23 16:20 06/24/23 16:20 Labs: Abnormal Lab Results - Last 24 Hours (Table) 06/24/23 06/24/23 06/24/23 Range/Units 16:05 16:20 16:20 WBC 11.0 H (3.8-10.6) k/uL Neutrophils # 8.8 H (1.3-7.7) k/uL Chloride 110 H (98-107) mmol/L BUN 20 H (7-17) mg/dL Glucose 129 H (74-99) mg/dL Urine Opiates Screen Detected H (NotDetected) U Benzodiazepines Scrn Detected H (NotDetected) Thrombosis Risk Factor Assmnt - Choose All That Apply Any of the Below Risk Factors Present?: Yes Each Factor Represents 1 point: Age 41-60 years Other Risk Factors: No Other congenital or acquired thrombophilia - If yes, enter type in comment: No Thrombosis Risk Factor Assessment Total Risk Factor Score: 1 Thrombosis Risk Factor Assessment Level: Low Risk Assessment and Plan Assessment: Known adherence to medication Periods of feeling off and drained followed by periods of memory loss Small abrasion with upper lip swelling Nicotine dependence History of bilateral breast cancer Plan: Not sure if patient had seizure, she had periods of not feeling unwell (as if She is going to have a seizure) also she was a small dose of lorazepam at bedside when necessary. I think patient will need more care with family and supervision Continue with neuro check for 24 hours. Especially with trauma is suspected with abrasion in the upper lip Neurology consult Follow-up EEG I offered nicotine patch patient declined workers' compensation commissioner consult Labs and medication were reviewed.. Continue same treatment. Continue with symptomatic treatment. Resume home medication. Monitor labs and vitals. DVT and GI prophylaxis. Further recommendations as per clinical course of the patient DVT prophylaxis: Subcutaneous heparin GI Prophylaxis: Pepcid PT/OT: Pending Prognosis is guarded
[2023-06-25 10:52] LABS: Basophils # (A) 0.05 X 10*3/uL (0.00-0.10); Basophils % (A) 0.6 %; Eosinophils # (A) 0.17 X 10*3/uL (0.04-0.35); Eosinophils % (A) 2.1 %; HCT 40.2 % (37.2-46.3); HGB 13.4 g/dL (12.0-15.0); Lymphocytes # (A) 1.47 X 10*3/uL (0.90-5.00); Lymphocytes % (A) 18.5 %; MCH 31.7 pg (27.0-32.0); MCHC 33.3 g/dL (32.0-37.0); Mean Platelet Volume 9.8 FL (9.5-12.2); Monocytes # (A) 0.56 X 10*3/uL (0.20-1.00); NRBC Per 100 WBC 0 X 10*3/uL (0.00-0.01); Neutrophils # (A) 5.69 X 10*3/uL (1.80-7.70); Neutrophils % (A) 71.5 %; Platelet Count 224 X 10*3/uL (140-440); RBC 4.23 X 10*6/uL (4.10-5.20); RDW 12.6 % (11.5-14.5); WBC 7.96 X 10*3/uL (4.50-10.00)
[2023-06-25 11:11] LABS: BUN/Creat Ratio 17.25 Ratio (12.00-20.00); Blood Urea Nitrogen 13.8 mg/dL (9.0-27.0); Chloride 110 mmol/L (96-109); Glucose 94 mg/dL (70-110); Magnesium 1.8 mg/dL (1.5-2.4); Potassium 4.1 mmol/L (3.5-5.5); Sodium 141 mmol/L (135-145)
[2023-06-25 11:12] LABS: ALT 29 U/L (8-44); AST 20 U/L (13-35); Albumin 3.6 g/dL (3.8-4.9); Alkaline Phosphatase 90 U/L (41-126); Calcium 8.8 mg/dL (8.7-10.3); Carbon Dioxide 22.3 mmol/L (21.6-31.8); Globulin 1.8 g/dL (1.6-3.3); Phosphorus 3.1 mg/dL (2.4-5.1); Total Bilirubin <0.2 mg/dL (0.3-1.2); Total Protein 5.4 g/dL (6.2-8.2)
--- NOTE | 2023-06-25 18:16 | EEG ---
ELECTROENCEPHALOGRAM REPORT PREAMBLE: This is a 57-year-old female with history of seizure disorder, came to the ER for recurrent seizures. The patient states that she has seizures every "10 years or so", since the age of 5. She is noncompliant with medication. The patient takes Ativan 0.5 mg every night. However, she has been out for 2 days. She states that when she does not take her medications, she has seizure. CURRENT MEDICATIONS: 1. Ativan. 2. Adderall. 3. Morphine. 4. Keppra 1000 mg that is just started. EEG FINDINGS: This is a 21-channel digital EEG recorded with video component, utilizing 10[employer] System with referential and bipolar montages. Background consists of well-developed, well-regulated, moderate-voltage activity in 9 to 10 Hz alpha. Background is posterior dominant and reactive to eye opening and closing. Photic driving response was seen with some flash frequencies. From middle of the study to the end, there were about 4 episodes of paroxysmal high-amplitude generalized spike and slow wave activity at 3 Hz seen during this study. These lasted from between 0.5 seconds to a maximum 3-second ictal activity. The event that lasted for 3 seconds was associated with frequent, repetitive rhythmic eye blinking. Different stages of sleep were not clearly seen. EKG channel showed no arrhythmia. IMPRESSION: This is an abnormal EEG due to presence of epileptiform activity, consisting of paroxysmal rhythmic delta followed by spike and slow wave activity in generalized distribution at 3 Hz. The longest event lasted for about 3 seconds, associated with repetitive eye blinking with this event. This EEG is consistent with a diagnosis of seizure disorder and the patient with the tendency for absence or generalized tonic- clonic seizure. Recommend prolonged study for further evaluation, to rule out any focality, if clinically indicated. MMODL / IJN: [id number] / DAVON
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
[2023-06-25] MEDS: FAMOTIDINE 20 MG/2 ML VIAL IV SCH (22:25)
[2023-06-26 02:39] VITALS: RESP 16
[2023-06-26] MEDS: FAMOTIDINE 20 MG/2 ML VIAL IV SCH (09:08)
--- NOTE | 2023-06-26 12:21 | CA ---
Transthoracic Echo Report Name: Sydni Swift Age: 57 Gender: F : 1965 Exam Date: 06/26/2023 07:38 Exam Location: [place] [facility] Ht (in): 58 Wt (lb): 110 Ordering Physician: George Arshad MD Attending/Referring Phys: [id number], Jeancarlos [employer] Klarissa Barlow [facility] Procedure CPT: Indications: LV function Cardiac Hx: Technical Quality: Fair Contrast 1: Total Dose (mL): Contrast 2: Total Dose (mL): MEASUREMENTS (Male / Female) Normal Values 2D ECHO LV Diastolic Diameter PLAX 4.5 cm 4.2 - 5.9 / 3.9 - 5.3 cm LV Systolic Diameter PLAX 3.1 cm IVS Diastolic Thickness 0.7 cm 0.6 - 1.0 / 0.6 - 0.9 cm LVPW Diastolic Thickness 0.7 cm 0.6 - 1.0 / 0.6 - 0.9 cm LV Relative Wall Thickness 0.3 Ascending Aorta Diameter 2.9 cm M-MODE Aortic Root Diameter MM 2.2 cm LA Systolic Diameter MM 2.2 cm LA Ao Ratio MM 1.0 AV Cusp Separation MM 1.8 cm DOPPLER AV Peak Velocity 112.9 cm/s AV Peak Gradient 5.1 mmHg AV Mean Velocity 79.1 cm/s AV Mean Gradient 2.8 mmHg AV Velocity Time Integral 24.8 cm LVOT Peak Velocity 84.6 cm/s LVOT Peak Gradient 2.9 mmHg LVOT Velocity Time Integral 17.1 cm Mitral E Point Velocity 60.0 cm/s Mitral A Point Velocity 42.7 cm/s Mitral E to A Ratio 1.4 MV Deceleration Time 139.9 ms LV E' Lateral Velocity 8.8 cm/s Mitral E to LV E' Lateral Ratio 6.8 LV E' Septal Velocity 8.3 cm/s Mitral E to LV E' Septal Ratio 7.2 Right Atrial Pressure 3.0 mmHg FINDINGS Left Ventricle Left ventricular wall thickness normal. Left ventricular cavity size normal. Low normal left ventricular systolic function with no obvious regional wall motion abnormalities. Left ventricular ejection fraction is estimated at 50- 55%. Right Ventricle Normal right ventricular size. Right Atrium Normal right atrial size. Left Atrium Normal left atrial size. Mitral Valve Structurally normal mitral valve. Trace mitral regurgitation. Aortic Valve Trileaflet aortic valve. No aortic valve stenosis or regurgitation. Tricuspid Valve Structurally normal tricuspid valve. No tricuspid regurgitation. Pulmonic Valve Structurally normal pulmonic valve. Trace pulmonic regurgitation. Pericardium No pericardial effusion. Aorta Normal size aortic root and proximal ascending aorta. CONCLUSIONS Normal LV size and systolic function Prominent posterior pericardial stripe Previewed by: Dr. Kurtis Barraza MD (Electronically Signed) Final Date: 26 June 2023 12:20
[2023-06-26] MEDS ORDERED: ACETAMINOPHEN TAB 325 MG TAB PO PRN (12:35)
--- NOTE | 2023-06-26 19:49 | P.PN ---
Subjective This is a pleasant 57 years old female with past medical history of bilateral breast cancers and recurrent seizure She has been here in this facility emergency room for seizure twice already this year on December and March. Patient states she takes lorazepam at bedtime for seizure she is not taking Keppra at home. Daughter low at bedside also. Patient says she came yesterday because she thinks she had a seizure, she says she ran out of her medication the lorazepam at bedtime because she did not take it Wednesday night and Wednesday night, that night she felt like as if she is going to have seizure, as she felt of and drained with headache and she thinks this will happen she will have seizure so she went lay down in her bed and call her son was at work, then patient cannot remember what happened, as per daughter in law says that her centigrade 20 minutes come to his mother house, the next thing she remembers is that her son is next to her in her bed , seizure activity was burst this, she denies urinary or bowel incontinence, no tongue biting But she has abrasion in her upper lip with slight swelling and the patient and family thinks that from fall during the seizure. Currently patient denies any specific symptoms, no headache dizziness weakness numbness, no change in urine or bowel habits, no urgency or change in frequency or dysuria. She denies weakness or numbness. Vital signs stable Labs reviewed and there were unremarkable Urine drug screen is positive for opiates and benzodiazepines Salicylates and acetaminophen levels are negative. CT of the brain is negative EKG: Normal sinus rhythm at [address] T changes EEG is ordered and pending and patient was started on Keppra and emergency room. 06/26/2023 Patient yesterday had abnormal EEG with paroxysmal epileptiform discharges. Neurologist on the case and Keppra 750 mg is continued as antiseizure medication Patient today still feeling some headache and feeling weird. Tylenol as provided. Leukocytosis improved Blood pressure 101/61 Keep monitoring for now Fiance at bedside and all questions answered to their satisfaction Objective - Vital Signs Vital signs: Vital Signs Temp 97.5 F L 06/26/23 11:29 Pulse 62 06/26/23 11:29 Resp 16 06/26/23 11:29 BP 101/61 06/26/23 11:29 Pulse Ox 94 L 06/26/23 11:29 FiO2 Intake & Output 06/25/23 06/26/23 06/26/23 18:59 06:59 18:59 Weight 49.895 kg Other: Voiding Method Toilet Toilet # Voids 2 1 # Bowel Movements 0 - Exam GENERAL: The patient is alert and oriented x3, not in any acute distress. Well developed, well nourished. HEENT: Pupils are round and equally reacting to light. EOMI. No scleral icterus. No conjunctival pallor. Normocephalic, atraumatic. No pharyngeal erythema. No thyromegaly. CARDIOVASCULAR: S1 and S2 present. No murmurs, rubs, or gallops. PULMONARY: Chest is clear to auscultation, no wheezing , no crackles. ABDOMEN: Soft, nontender, nondistended, normoactive bowel sounds. No palpable organomegaly. MUSCULOSKELETAL: No joint swelling or deformity. EXTREMITIES: No cyanosis, clubbing, or pedal edema. NEUROLOGICAL: Gross neurological examination did not reveal any focal deficits. SKIN: No rashes. no petechiae. 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 Continue same treatment. Continue with symptomatic treatment. Resume home medication. Monitor labs and vitals. DVT and GI prophylaxis. Further recommendations as per clinical course of the patient DVT prophylaxis: Subcutaneous heparin GI Prophylaxis: Pepcid PT/OT: Pending Prognosis is guarded Plan of care as discussed with the patient and she verbalized understanding and acceptance
[2023-06-26] MEDS: FAMOTIDINE 20 MG TAB PO SCH (20:51)
[2023-06-26] MEDS: HEPARIN SODIUM,PORCINE 5,000 UNIT/ML 1 ML VIAL SQ SCH (20:52)
[2023-06-27 07:55] VITALS: BP 106/64; PULSE 68; TEMP 97.5
[2023-06-27] MEDS: HEPARIN SODIUM,PORCINE 5,000 UNIT/ML 1 ML VIAL SQ SCH (08:46)
[2023-06-27] MEDS: FAMOTIDINE 20 MG TAB PO SCH (08:52)
--- NOTE | 2023-07-07 10:30 | P.DS ---
Providers Date of admission: 06/24/23 19:52 Attending physician: Wu Jensen Consults: 06/24/23 19:50 Consult Physician Routine Consulting Provider: Jair Lay Consult Reason/Comments: sz Do you want consulting provider notified?: Yes Primary care physician: Ck Manzano [facility] Course: diagnoses: Seizures with abnormal EEG showing paroxysmal epileptic discharges non adherence to medication Small abrasion with upper lip swelling Nicotine dependence History of bilateral breast cancer hospital course: This is a pleasant 57 years old female with past medical history of bilateral breast cancers and recurrent seizure. pt was not on antiseizure medecation at home , she was taking ativan 0.5 mg prn daily. She has been here in this facility emergency room for seizure twice already this year on December and March. Patient states she takes lorazepam at bedtime for seizure she is not taking Keppra at home. Patient neurology service, she had abnormal EEG with paroxysmal epileptiform discharges. Patient was started on Keppra she was drowsy first day after starting Keppra but that's improved on the day of discharge, patient was asymptomatic no headache dizziness, no new weakness numbness of extremities no diplopia or slurred speech. Patient denies any other new complaints and she wants to go home. Patient was instructed to walk in the hallway which she could do freely with no difficulty discharge by neurology service. Problems and management plan were discussed with the patient and he verbalized understanding and acceptance Patient was found stable and can be discharged home in guarded prognosis however he needs follow-up as an outpatient. Patient was instructed to follow up with PCP within one week and patient agrees Patient was instructed to follow up with the neurologist Dr. Valdez in one week after discharge and she agrees Physical exam Gen: patient is a AAOx3, no distress CVS: S1-S2, RRR, no murmur Lungs: B/L CTA, no wheezing Abdomen: soft, no distention, no tenderness, positive bowel sounds Extremity: no leg edema or induration Time spent more than 35 minutes Patient Condition at Discharge: Good Plan - Discharge Summary Discharge Rx Participant: Yes New Discharge Prescriptions: New levETIRAcetam [Keppra] 750 mg PO Q12HR #60 tab Acetaminophen Tab [Tylenol] 325 mg PO Q6HR PRN #20 tab PRN Reason: Fever And/ Or Pain Continue LORazepam [Ativan] 0.5 mg PO DAILY PRN PRN Reason: Seizures Dextroamphetamine/Amphetamine [Adderall] 30 mg PO AC-BID Discharge Medication List Dextroamphetamine/Amphetamine [Adderall] 30 mg PO AC-BID 12/03/20 [History] LORazepam [Ativan] 0.5 mg PO DAILY PRN 01/03/23 [History] Acetaminophen Tab [Tylenol] 325 mg PO Q6HR PRN #20 tab 06/27/23 [Rx] levETIRAcetam [Keppra] 750 mg PO Q12HR #60 tab 06/27/23 [Rx] Follow up Appointment(s)/Referral(s): Oscar Valdez MD [REFERRING] - 1 Week (Patient to make own follow-up appt. Office closed at time of discharge. ) Svetlana Nuno III, MD [STAFF PHYSICIAN] - 1 Week (Patient to make own follow-up appt. Office closed at time of discharge. ) Patient Instructions/Handouts: Seizure/Epilepsy Discharge Instructions & Follow-Up, Acetaminophen (By mouth), Levetiracetam (By mouth), Recurrent Seizures in Adults (ED) Activity/Diet/Wound Care/Special Instructions: Please be sure to follow-up with neurology after discharge. Continue taking anti-seizure medications as prescribed. DO NOT drive until minimum of 6 months seizure free. Discharge Disposition: HOME WITH HOME HEALTH SERVICES
== END 2023-06-27 10:55 | disposition home or self-care (01) | DRG 53 ==
LOC: EC 15:28 → SUPCPDRO 15:28 → EC 17:44 → INTOOBSV 19:52 → OBSVTOIN 19:52 → 6NMEDSUR 19:52 → UNDOADMOB 19:52 → 5NMEDONC 06-25 04:24 → 6NMEDSUR 06-25 04:24 → 5NMEDONC 06-25 06:41 → UNDODISIN 06-27 10:55 → UNDODISOB 06-27 10:55
PROVIDERS: ADMIT Hospitalist; ATTEND Hospitalist
DX: G40.419 Other generalized epilepsy and epileptic syndromes, intractable, without status epilepticus (principal); D72.829 Elevated white blood cell count, unspecified; Z66 Do not resuscitate; Z91.148 Patient's other noncompliance with medication regimen for other reason; Z91.199 Patient's noncompliance with other medical treatment and regimen due to unspecified reason; S00.511A Abrasion of lip, initial encounter; R51.9 Headache, unspecified; F41.9 Anxiety disorder, unspecified; F90.9 Attention-deficit hyperactivity disorder, unspecified type; F17.210 Nicotine dependence, cigarettes, uncomplicated; Z79.899 Other long term (current) drug therapy; Z85.3 Personal history of malignant neoplasm of breast; Z87.820 Personal history of traumatic brain injury; Z88.8 Allergy status to other drugs, medicaments and biological substances
CPT/HCPCS: 36415; 70450; 80053; 80143; 80179; 80306; 83735; 84100; 85025; 93005; 93306; 94760; 95816; 96361; 96374; 96375; 96376; 99285

== ENCOUNTER → 2024-12-25 | Outpatient (CLI) | payer OTHER ==
--- NOTE | 2024-12-26 06:56 | MR ---
EXAMINATION TYPE: MR brain wo/w con DATE OF EXAM: 12/25/2024 COMPARISON: CT brain September 15, 2024 and older CTs HISTORY: Headaches, hx seizures. TECHNIQUE: Multiplanar, multisequence images of the brain and brainstem is performed without and with IV contras t, utilizing 5 mL intravenous Gadobutrol . FINDINGS: Diffusion weighted images demonstrate no evidence of a recent infarct or other diffusion ab normality. There is no extra-axial fluid collection. The ventricular system and cisternal spaces ar e normal in size and appearance. The brain volume is age appropriate. Occasional tiny focus of T2 hy perintensity seen throughout the white matter bilaterally. Approximately 5-8 scattered lesions are se en. On T2 coronal weighted images the hippocampal gyri appear symmetric and thought within normal heart its. Midline structures demonstrate normal morphology. The craniocervical junction appears within normal limits. Post contrast images demonstrate no abnormal enhancement. The dural venous sinuses appear pa tent. The visualized sinuses are clear and the globes are intact. IMPRESSION: Minimal nonspecific white matter change otherwise unremarkable study. [facility], , 12/26/2024 6:53 AM
== END | disposition home or self-care (01) ==
LOC: RADMRIMAIN 19:24
PROVIDERS: ATTEND Psychiatry & Neurology Neurology
DX: G40.009 Localization-related (focal) (partial) idiopathic epilepsy and epileptic syndromes with seizures of localized onset, not intractable, without status epilepticus (principal); G43.909 Migraine, unspecified, not intractable, without status migrainosus; R90.82 White matter disease, unspecified
CPT/HCPCS: 70553; A9585